=== PATIENT | female | born 1960 | race Caucasian/White ===

== ENCOUNTER → 2016-09-16 | Outpatient (CLI) | payer MEDICARE ==
--- NOTE | 2016-09-17 11:34 | MM ---
Reason for exam: screening (asymptomatic). Last mammogram was performed 1 year and 5 months ago. History: Patient is postmenopausal. Excisional biopsy of the left breast, April 2004. Excisional biopsy of the left breast, 2000. Excisional biopsy of the left breast, June 1999. Took estrogen for 4 years 6 months beginning at age 39. Physical Findings: A clinical breast exam by your physician is recommended on an annual basis and results should be correlated with mammographic findings. MG 3D Screening Mammo W/Cad Bilateral CC and MLO view(s) were taken. Prior study comparison: April 18, 2015, bilateral MG 3d diag mammo w/cad TOBY. June 24, 2006, CAD bilateral diagnostic mammogram. The breast tissue is almost entirely fat. Left benign calcifications. There is no discrete abnormality. No significant changes when compared with prior studies. ASSESSMENT: Benign, BI-RAD 2 RECOMMENDATION: Routine screening mammogram of both breasts in 1 year.
== END | disposition home or self-care (01) ==
LOC: RADMAMWWP 13:05
PROVIDERS: ATTEND Family Medicine
DX: Z12.31 Encounter for screening mammogram for malignant neoplasm of breast (principal)
CPT/HCPCS: 77063; G0202

== ENCOUNTER 2016-09-19 10:21 | Emergency (ER) | payer MEDICARE ==
[2016-09-19 10:29] VITALS: BP 109/63; PULSE 72; RESP 16; TEMP 97.8
--- NOTE | 2016-09-19 11:21 | ED ---
Fall HPI - General Chief Complaint: Fall Stated Complaint: Fall/shoulder/head/knees Time Seen by Provider: 09/19/16 10:33 Source: patient, RN notes reviewed Mode of arrival: wheelchair - History of Present Illness Initial Comments: 55-year-old female presents to the emergency department with a chief complaint of fall. Patient states she tripped over a cord in the bathroom. Patient states that she fell forward onto her left shoulder and her right knee. Patient states she also hit her head and is having some mild neck pain. Patient states that her back is also causing her some discomfort as well. Patient states she was able to ambulate after the incident. Patient states that she has no nausea or vomiting. There is no loss of consciousness. Patient states she was concerned due to the [place] her right knee and just her generally not feeling 100% feeling sore from the fall so she thought that she should be seen. Patient states that her family care doctor is closed today so she could not see him. Patient denies any recent fever, chills, shortness of breath, chest pain, back pain, abdominal pain, nausea vomiting, numbness or tingling, dysuria or hematuria, constipation or diarrhea, headaches or visual changes, or any other current symptoms. - Related Data Home Medications Medication Instructions Recorded Confirmed ALPRAZolam [Xanax] 0.5 mg PO Q6HR PRN 09/05/14 07/15/15 Atenolol [Tenormin] 50 mg PO BID 09/05/14 07/15/15 Doxepin HCl [SINEquan] 150 - 300 mg PO HS 12/11/14 07/15/15 Ibuprofen [Motrin] 800 mg PO Q6HR PRN 12/11/14 07/15/15 PHENobarbital 15 mg PO DAILY 12/11/14 07/15/15 FLUoxetine HCL [FLUoxetine HCL] 80 mg PO DAILY 07/09/15 07/15/15 HYDROcodone/APAP 10-325MG [[place] 1 tab PO Q6H PRN 07/15/15 07/15/15 10-325] Naproxen 500 mg PO BID-W/MEALS 07/15/15 07/15/15 Allergies Allergy/AdvReac Type Severity Reaction Status Date / Time No Known Allergies Allergy Verified 09/19/16 10:29 Review of Systems ROS Statement: Those systems with pertinent positive or pertinent negative responses have been documented in the HPI. ROS Other: All systems not noted in ROS Statement are negative. Past Medical History Past Medical History: Fibromyalgia, Hypertension, Osteoarthritis (OA) Additional Past Medical History / Comment(s): agoraphobia, ocd, , CHRONIC BACK PAIN, DDD,MIGRAINES, UTI, History of Any Multi-Drug Resistant Organisms: None Reported Past Surgical History: Section, Hysterectomy, Joint Replacement Additional Past Surgical History / Comment(s): lumpectomy/cyst (BENIGN) removed lt breast, total hysterectomy, colonoscopy, rt foot sx BENIGN TUMOR REMOVED., luke knee replacements Past Anesthesia/Blood Transfusion Reactions: No Reported Reaction Additional Past Anesthesia/Blood Transfusion Reaction / Comment(s): CLAUSTERPHOBIA Past Psychological History: Anxiety, Depression, Panic Disorder Smoking Status: Never smoker Past Alcohol Use History: None Reported Past Drug Use History: None Reported - Past Family History Father Additional Family Medical History / Comment(s): ALL PT KNOWS ABOUT HER DAD WAS HE WAS AN ALCOHOLIC/SMOKER FROM EMPHYSEMA 6 YEARS AGO. Mother Family Medical History: Cancer Additional Family Medical History / Comment(s): UNK TYPE OF CANCER, MIGRAINES General Exam Limitations: no limitations General appearance: alert, in no apparent distress Head exam: Present: atraumatic, normocephalic, normal inspection Eye exam: Present: normal appearance, PERRL, EOMI. Absent: scleral icterus, conjunctival injection, periorbital swelling ENT exam: Present: normal exam, mucous membranes moist Neck exam: Present: normal inspection. Absent: tenderness, meningismus, lymphadenopathy Respiratory exam: Present: normal lung sounds bilaterally. Absent: respiratory distress, wheezes, rales, rhonchi, stridor Cardiovascular Exam: Present: regular rate, normal rhythm, normal heart sounds. Absent: systolic murmur, diastolic murmur, rubs, gallop, clicks Extremities exam: Present: normal inspection (except to the right knee that does appear to have right knee ecchymosis), full ROM, tenderness (Mild to the right knee as well as to the left shoulder), normal capillary refill. Absent: pedal edema, joint swelling, calf tenderness Back exam: Present: normal inspection, full ROM, tenderness (Some midline tenderness noted in the lower lumbar region), vertebral tenderness (Lower lumbar ). Absent: CVA tenderness (R), CVA tenderness (L), muscle spasm, paraspinal tenderness Neurological exam: Present: alert, oriented X3, CN II-XII intact, reflexes normal. Absent: motor sensory deficit Psychiatric exam: Present: normal affect, normal mood Skin exam: Present: warm, dry, intact, normal color. Absent: rash Course Vital Signs 09/19/16 10:24 Temperature 97.8 F Pulse Rate 72 Respiratory 16 Rate Blood Pressure 109/63 O2 Sat by Pulse 94 L Oximetry Medical Decision Making - Medical Decision Making 55-year-old female presents to the emergency department with the chief complaint of fall. This and patient does appear to have ecchymosis to the right knee. Patient also does have some left shoulder tenderness. This time imaging is reviewed. Everything does appear to be negative for any acute process. This time we did discuss close follow-up with her doctor return parameters all questions. Patient stated that she understood and she is agreeable with plan. At this time we did discuss follow-up. The patient will be discharged home. - Radiology Data Radiology results: report reviewed, image reviewed Disposition Clinical Impression: Fall, Left shoulder strain, Lumbar strain, Cervical strain, Contusion of right knee Disposition: HOME SELF-CARE Condition: Stable Instructions: Muscle Strain (ED), Head Injury (ED), Contusion in Adults (ED) Additional Instructions: Please use medication as discussed. Please follow up with family doctor if symptoms have not improved over the next two days. Please return to the emergency room if your symptoms increase or worsen or for any other concerns. Referrals: Cosme Kaba MD [Primary Care Provider] - 1-2 days Time of Disposition: 11:59
--- NOTE | 2016-09-19 11:32 | CT ---
EXAMINATION TYPE: CT brain cspine wo con DATE OF EXAM: 09/19/2016 COMPARISON: 07/09/2015 HISTORY: Fall x 2 CT DLP: Brain (1116.00) and C-spine (535.40) mGycm, Automated exposure control for dose reduction was used. CONTRAST: Patient injected with 0 mL of Omnipaque 300. CT of the brain is performed utilizing 3 mm thick sections through the posterior fossa and 3 mm thick sections through the remaining calvarium. Study is performed within 24 hours of arrival to the hospital. No abnormal hyperdensity is present to suggest an acute intracranial hemorrhage. No mass lesion is evident. No acute infarcts are evident. Ventricles and sulci are appropriate for the patient age. Paranasal sinuses and mastoid air cells within the [id number] are clear. IMPRESSIONS: 1. No acute intracranial changes. CT cervical spine. COMPARISON: 07/09/2015 CT of the cervical spine is performed in the axial plane at 2 mm thick sections. Reconstructed image s in the coronal, and sagittal plane are reviewed on the computer. No acute fractures are evident. Vertebral body alignment is normal. There is diffuse loss of disc height throughout the cervical spine. Vertebral body heights are preserved. There is some endplate changes present C3-4 to the right at C4-5 bilaterally C5-6 with mild anterior thecal sac compression. No spinal canal stenosis is present. No neural foraminal stenosis is evident. IMPRESSIONS: 1. Degenerative changes within the cervical spine. Exam is stable from 07/09/2015. 2. No acute osseous abnormality.
--- NOTE | 2016-09-19 11:39 | XR ---
EXAMINATION TYPE: XR shoulder complete LT DATE OF EXAM: 09/19/2016 CLINICAL HISTORY: pain COMPARISON: NONE TECHNIQUE: Three views of the left shoulder are obtained. FINDINGS: There is no acute fracture/dislocation evident. The acromioclavicular and glenohumeral talya int spaces appear mildly narrowed. The visualized ribs are intact and unremarkable. IMPRESSION: 1. There is no acute fracture or dislocation. ICD 10 NO FRACTURE, INITIAL EVALUATION
--- NOTE | 2016-09-19 11:40 | XR ---
EXAMINATION TYPE: XR knee complete RT DATE OF EXAM: 09/19/2016 CLINICAL HISTORY: pain TECHNIQUE: Three views of the right knee are obtained. COMPARISON: None. FINDINGS: There is no acute fracture/dislocation. Total knee arthroplasty changes are seen. Small tillman prapatellar joint effusion. The overlying soft tissue appears unremarkable. IMPRESSION: There is no acute fracture or dislocation.ICD 10 NO FRACTURE, INITIAL EVALUATION
--- NOTE | 2016-09-19 11:41 | XR ---
EXAMINATION TYPE: XR lumbar spine 2 or 3V DATE OF EXAM: 09/19/2016 CLINICAL HISTORY: pain TECHNIQUE: Three views of the lumbar spine are submitted. COMPARISON: None. FINDINGS: There are 5 lumbar type vertebral bodies identified. The lumbar spine shows satisfactory alignment w ithout evidence of acute fracture or dislocation. Vertebral body heights are within normal limits. Moderate degenerative narrowing L4-5 and L5-S1. Grade 1 anterolisthesis L5 on S1-S2 regular 7.1 cm. S evere facet joint arthropathy. The overlying soft tissue appears unremarkable. IMPRESSION: No acute fracture is seen in the lumbar spine. Degenerative change and grade 1 anterolisthesis. ICD 10 NO FRACTURE, INITIAL EVALUATION
== END 2016-09-19 12:22 | disposition home or self-care (01) ==
LOC: EC 10:21
DX: S46.912A Strain of unspecified muscle, fascia and tendon at shoulder and upper arm level, left arm, initial encounter (principal); S16.1XXA Strain of muscle, fascia and tendon at neck level, initial encounter; S80.01XA Contusion of right knee, initial encounter; I10 Essential (primary) hypertension; M19.90 Unspecified osteoarthritis, unspecified site; F32.9 Major depressive disorder, single episode, unspecified; Z79.1 Long term (current) use of non-steroidal anti-inflammatories (NSAID); Z79.899 Other long term (current) drug therapy; W01.198A Fall on same level from slipping, tripping and stumbling with subsequent striking against other object, initial encounter; Y92.091 Bathroom in other non-institutional residence as the place of occurrence of the external cause
CPT/HCPCS: 70450; 72100; 72125; 99284

== ENCOUNTER 2017-05-07 16:45 | Emergency (ER) | payer MEDICARE ==
[2017-05-07 16:50] VITALS: RESP 18
[2017-05-07] MEDS ORDERED: SODIUM CHLORIDE 0.9% 500 ML IV ONE (17:18)
[2017-05-07] MEDS ORDERED: RX INFO: IV CONTRAST WAS GIVEN 1 EACH MISC MISCELLANE PRN ×2 (17:18→17:34)
--- NOTE | 2017-05-07 17:20 | ED ---
Fall HPI - General Chief Complaint: Fall Stated Complaint: Back and Abd Pain-fall Source: patient, family Mode of arrival: wheelchair - History of Present Illness Initial Comments: Patient is a 56-year-old female presenting for abdominal pain and flank pain. The patient states that she lives with her and children in that she has fell 22 days ago. She states that she injured her left buttocks as well as her flanks and abdomen. Both falls were mechanical and that she tripped. Additionally, she denies any significant head injury or loss of consciousness. She comes in today for worsening pain as diffuse across her back as well as right flank pain. The pain is crampy estiven not associated with any nausea/ vomiting/diarrhea. She also took some Motrin which did not relieve his symptoms. - Related Data Home Medications Medication Instructions Recorded Confirmed Atenolol [Tenormin] 25 mg PO BID 09/05/14 05/07/17 Ibuprofen [Motrin] 800 mg PO TID PRN 12/11/14 05/07/17 FLUoxetine HCL [FLUoxetine HCL] 40 mg PO DAILY 07/09/15 05/07/17 Naproxen 500 mg PO BID-W/MEALS 07/15/15 05/07/17 ALPRAZolam [Xanax] 1 mg PO TID 05/07/17 05/07/17 Atomoxetine HCl 80 mg PO DAILY 05/07/17 05/07/17 Buprenorphine HCl/Naloxone HCl 1 film SL TID 05/07/17 05/07/17 [Suboxone 8 mg-2 mg Sl Film] Doxepin HCl [SINEquan] 200 mg PO HS 05/07/17 05/07/17 PHENobarbital [Luminal] 16.2 mg PO TID 05/07/17 05/07/17 Phentermine HCl [Adipex-P] 37.5 mg PO QAM 05/07/17 05/07/17 Allergies Allergy/AdvReac Type Severity Reaction Status Date / Time No Known Allergies Allergy Verified 05/07/17 17:12 Review of Systems ROS Statement: Those systems with pertinent positive or pertinent negative responses have been documented in the HPI. Constitutional: Negative for chills, fatigue and fever. HENT: Negative for congestion. Respiratory: Negative for chest tightness, shortness of breath and wheezing. Cardiovascular: Negative for chest pain and palpitations. Gastrointestinal: Positive for abdominal pain and flank pain Negative for abdominal distention, diarrhea, nausea and vomiting. Genitourinary: Negative for dysuria. Musculoskeletal: Negative for back pain, neck pain and neck stiffness. Skin: Negative for color change. Neurological: Negative for dizziness, speech difficulty, weakness and light- headedness. Psychiatric/Behavioral: Negative for agitation and confusion. The patient is not nervous/anxious. ROS Other: All systems not noted in ROS Statement are negative. Past Medical History Past Medical History: Fibromyalgia, Hypertension, Osteoarthritis (OA) Additional Past Medical History / Comment(s): agoraphobia, ocd, , CHRONIC BACK PAIN, DDD,MIGRAINES, UTI, History of Any Multi-Drug Resistant Organisms: None Reported Past Surgical History: Section, Hysterectomy, Joint Replacement Additional Past Surgical History / Comment(s): lumpectomy/cyst (BENIGN) removed lt breast, total hysterectomy, colonoscopy, rt foot sx BENIGN TUMOR REMOVED., luke knee replacements Past Anesthesia/Blood Transfusion Reactions: No Reported Reaction Additional Past Anesthesia/Blood Transfusion Reaction / Comment(s): CLAUSTERPHOBIA Past Psychological History: Anxiety, Depression, Panic Disorder Smoking Status: Never smoker Past Alcohol Use History: None Reported Past Drug Use History: None Reported - Past Family History Father Additional Family Medical History / Comment(s): ALL PT KNOWS ABOUT HER DAD WAS HE WAS AN ALCOHOLIC/SMOKER FROM EMPHYSEMA 6 YEARS AGO. Mother Family Medical History: Cancer Additional Family Medical History / Comment(s): UNK TYPE OF CANCER, MIGRAINES General Exam - General Exam Comments Initial Comments: Physical Exam Constitutional: Pt is oriented to person, place, and time. Pt appears well- developed and well-nourished. No distress. HENT: Head: Normocephalic and atraumatic. Eyes: EOM are normal. Neck: Normal range of motion. Neck supple. Cardiovascular: Normal rate, regular rhythm, S1 normal, S2 normal and normal heart sounds. Exam reveals no gallop and no friction rub. No murmur heard. Pulmonary/Chest: Effort normal and breath sounds normal. No tachypnea and no bradypnea. No respiratory distress. No wheezes or rales noted. Abdominal: Soft. Bowel sounds are normal. Pt exhibits no shifting dullness, no distension, no pulsatile liver, no fluid wave, no abdominal bruit and no ascites. There is no tenderness. There is no rigidity, no rebound, no guarding, no tenderness at McBurney's point and negative Cuevas's sign. Musculoskeletal: Normal range of motion. There is no tenderness to palpation of the C, T or L-spine. There is full range of motion of the C, T and L-spine Neurological: Pt is alert and oriented to person, place, and time. No cranial nerve deficit. Skin: Skin is warm and dry. No rash noted. Pt is not diaphoretic. No erythema. No pallor. Mild ecchymosis on the left buttocks Psychiatric: Pt has a normal mood and affect. Pt behavior is normal. Thought content normal. Limitations: no limitations Course Vital Signs 05/07/17 05/07/17 05/07/17 16:46 17:50 19:35 Temperature 98.3 F 97.6 F Pulse Rate 71 70 Respiratory 18 18 18 Rate Blood Pressure 111/77 121/65 O2 Sat by Pulse 97 98 Oximetry Medical Decision Making - Medical Decision Making Laboratory studies revealed that there is no significant electrolyte derangements and urinalysis was negative for infection. Additionally, CT abdomen showed no evidence of acute pathology but there was a possible contrast load in the ileocecal region. It was advised that this should be clinically correlated but based on repeat physical exams, the patient was not having any significant tenderness. Because the findings of CT and the negative findings on laboratory studies, it was felt that the patient could be safely discharged home and that she should follow-up with her PCP for further evaluation. Prior to discharge, the patient was noticed to be resting comfortably in bed in no acute distress. Patient was agreeable to plan. - Lab Data Result diagrams: 05/07/17 17:45 05/07/17 17:45 Lab Results 05/07/17 05/07/17 05/07/17 Range/Units 17:45 17:45 17:45 WBC 5.8 (3.8-10.6) k/uL RBC 4.76 (3.80-5.40) m/uL Hgb 13.8 (11.4-16.0) gm/dL Hct 43.6 (34.0-46.0) % MCV 91.4 (80.0-100.0) fL MCH 28.9 (25.0-35.0) pg MCHC 31.6 (31.0-37.0) g/dL RDW 13.9 (11.5-15.5) % Plt Count 247 (150-450) k/uL Neutrophils % 75 % Lymphocytes % 16 % Monocytes % 4 % Eosinophils % 3 % Basophils % 1 % Neutrophils # 4.4 (1.3-7.7) k/uL Lymphocytes # 1.0 (1.0-4.8) k/uL Monocytes # 0.2 (0-1.0) k/uL Eosinophils # 0.2 (0-0.7) k/uL Basophils # 0.0 (0-0.2) k/uL PT 10.2 (9.0-12.0) sec INR 1.0 (<1.2) APTT 22.6 (22.0-30.0) sec Sodium 139 (137-145) mmol/L Potassium 4.4 (3.5-5.1) mmol/L Chloride 104 (98-107) mmol/L Carbon Dioxide 26 (22-30) mmol/L Anion Gap 9 mmol/L BUN 16 (7-17) mg/dL Creatinine 0.60 (0.52-1.04) mg/dL Est GFR (MDRD) Af Amer >60 (>60 ml/min/1.73 sqM) Est GFR (MDRD) Non-Af >60 (>60 ml/min/1.73 sqM) Glucose 100 H (74-99) mg/dL Calcium 9.4 (8.4-10.2) mg/dL Magnesium 1.6 (1.6-2.3) mg/dL Total Bilirubin 0.2 (0.2-1.3) mg/dL AST 21 (14-36) U/L ALT 20 (9-52) U/L Alkaline Phosphatase 84 (38-126) U/L Total Protein 6.9 (6.3-8.2) g/dL Albumin 3.9 (3.5-5.0) g/dL Urine Color Urine Appearance (Clear) Urine pH (5.0-8.0) Ur Specific [place] (1.001-1.035) Urine Protein (Negative) Urine Glucose (UA) (Negative) Urine Ketones (Negative) Urine Blood (Negative) Urine Nitrite (Negative) Urine Bilirubin (Negative) Urine Urobilinogen (<2.0) mg/dL Ur Leukocyte Esterase (Negative) 05/07/17 Range/Units 17:55 WBC (3.8-10.6) k/uL RBC (3.80-5.40) m/uL Hgb (11.4-16.0) gm/dL Hct (34.0-46.0) % MCV (80.0-100.0) fL MCH (25.0-35.0) pg MCHC (31.0-37.0) g/dL RDW (11.5-15.5) % Plt Count (150-450) k/uL Neutrophils % % Lymphocytes % % Monocytes % % Eosinophils % % Basophils % % Neutrophils # (1.3-7.7) k/uL Lymphocytes # (1.0-4.8) k/uL Monocytes # (0-1.0) k/uL Eosinophils # (0-0.7) k/uL Basophils # (0-0.2) k/uL PT (9.0-12.0) sec INR (<1.2) APTT (22.0-30.0) sec Sodium (137-145) mmol/L Potassium (3.5-5.1) mmol/L Chloride (98-107) mmol/L Carbon Dioxide (22-30) mmol/L Anion Gap mmol/L BUN (7-17) mg/dL Creatinine (0.52-1.04) mg/dL Est GFR (MDRD) Af Amer (>60 ml/min/1.73 sqM) Est GFR (MDRD) Non-Af (>60 ml/min/1.73 sqM) Glucose (74-99) mg/dL Calcium (8.4-10.2) mg/dL Magnesium (1.6-2.3) mg/dL Total Bilirubin (0.2-1.3) mg/dL AST (14-36) U/L ALT (9-52) U/L Alkaline Phosphatase (38-126) U/L Total Protein (6.3-8.2) g/dL Albumin (3.5-5.0) g/dL Urine Color Yellow Urine Appearance Clear (Clear) Urine pH 6.5 (5.0-8.0) Ur Specific [place] 1.020 (1.001-1.035) Urine Protein Negative (Negative) Urine Glucose (UA) Negative (Negative) Urine Ketones Negative (Negative) Urine Blood Negative (Negative) Urine Nitrite Negative (Negative) Urine Bilirubin Negative (Negative) Urine Urobilinogen <2.0 (<2.0) mg/dL Ur Leukocyte Esterase Negative (Negative) Disposition Clinical Impression: Abdominal pain, Fall at home Disposition: HOME SELF-CARE Condition: Good Instructions: Fall Prevention for Older Adults (ED), Abdominal Pain (ED) Referrals: Cosme Kaba MD [Primary Care Provider] - 1-2 days Time of Disposition: 19:31
[2017-05-07 18:06] LABS: Basophils % (A) 1 %; Eosinophils # (A) 0.2 k/uL (0-0.7); Eosinophils % (A) 3 %; HCT 43.6 % (34.0-46.0); HGB 13.8 gm/dL (11.4-16.0); Lymphocytes % (A) 16 %; MCH 28.9 pg (25.0-35.0); MCHC 31.6 g/dL (31.0-37.0); MCV 91.4 fL (80.0-100.0); Mean Platelet Volume 7.2; Monocytes # (A) 0.2 k/uL (0-1.0); Monocytes % (A) 4 %; Neutrophils # (A) 4.4 k/uL (1.3-7.7); Neutrophils % (A) 75 %; Platelet Count 247 k/uL (150-450); RBC 4.76 m/uL (3.80-5.40); RDW 13.9 % (11.5-15.5); WBC 5.8 k/uL (3.8-10.6)
[2017-05-07 18:09] LABS: Appearance,Urine Clear (Clear); Bilirubin,Urine Negative (Negative); Blood,Urine Negative (Negative); Color,Urine Yellow; Glucose,Urine (UA) Negative (Negative); Ketones,Urine Negative (Negative); Leukocyte Esterase,Urine Negative (Negative); Nitrite,Urine Negative (Negative); PH, Urine 6.5 (5.0-8.0); Protein,Urine Negative (Negative); Urobilinogen,Urine <2.0 mg/dL (<2.0)
[2017-05-07 18:13] LABS: ALT 20 U/L (9-52); AST 21 U/L (14-36); Albumin 3.9 g/dL (3.5-5.0); Alkaline Phosphatase 84 U/L (38-126); Anion Gap 9 mmol/L; Blood Urea Nitrogen 16 mg/dL (7-17); Calcium 9.4 mg/dL (8.4-10.2); Carbon Dioxide 26 mmol/L (22-30); Chloride 104 mmol/L (98-107); Glucose 100 mg/dL (74-99); Magnesium 1.6 mg/dL (1.6-2.3); Potassium 4.4 mmol/L (3.5-5.1); Sodium 139 mmol/L (137-145); Total Bilirubin 0.2 mg/dL (0.2-1.3); Total Protein 6.9 g/dL (6.3-8.2)
[2017-05-07 18:15] LABS: Partial Thromboplastin Time 22.6 sec (22.0-30.0); Prothrombin Time 10.2 sec (9.0-12.0)
[2017-05-07] MEDS ORDERED: Acetaminophen-Codeine 300-30mg TAB PO STA (18:28)
--- NOTE | 2017-05-07 18:54 | CT ---
EXAMINATION TYPE: CT abdomen pelvis w con DATE OF EXAM: 05/07/2017 COMPARISON: NONE HISTORY: 56-year-old female Bilateral flank pain post multiple falls TECHNIQUE: Contiguous axial scanning of the abdomen and pelvis following administration of 100 ml Omn ipaque 300 IV contrast. Delayed images through the kidneys and coronal/sagittal reconstructions perf ormed. CT DLP: 1673.4 mGycm Automated exposure control for dose reduction was used. FINDINGS: Heart normal size without pericardial effusion. Strandy areas of atelectasis or scarring are present at the lung bases. No pleural effusion. Subcentimeter hypodensity mid liver to small for accurate CT characterization, probable cyst. Liver m ildly enlarged at 18.1 cm craniocaudal. Portal venous system is patent. No biliary ductal dilatation. Gallbladder, adrenal glands, kidneys, spleen, and partially fatty replaced pancreas are otherwise deysi ssly unremarkable. No dilated small bowel, free fluid, or free air. No mesenteric or retroperitoneal lymphadenopathy. There is dense inspissated material at the ileocecal region and cecum suggesting previous oral contra st administration. A couple sigmoid diverticula. No pericolonic inflammatory changes. Bladder nondistended. Uterus surgically absent. Neither ovary clearly seen. No abnormal fluid collect ion in the pelvis or pelvic lymphadenopathy seen. Bones: Degenerative changes of the pubic symphysis. Moderate to advanced disc/endplate degenerative c hange L4-L5 and L5-S1. Hypertrophic facet arthropathy mid to lower lumbar spine. There is a pars inte rarticularis defect on the right L5 and grade 1 anterolisthesis at L5-S1. No osseous destructive proc ess. IMPRESSION: 1. DENSE INSPISSATED MATERIAL AT THE ILEOCECAL REGION SUGGESTS PRIOR ORAL CONTRAST ADMINISTRATION. PO SSIBLE DESICCATED AND RETAINED BARIUM. CLINICALLY CORRELATE. NO OBSTRUCTIVE CHANGES. 2. MODERATE TO ADVANCED DEGENERATIVE CHANGES L4-L5 AND L5-S1. THERE IS A GRADE 1 ANTEROLISTHESIS OF L 5-S1 AND A RIGHT L5 PARS DEFECT. 3. A COUPLE SIGMOID DIVERTICULA.
[2017-05-07 19:43] VITALS: BP 121/65; PULSE 70; TEMP 97.6
== END 2017-05-07 19:35 | disposition home or self-care (01) ==
LOC: EC 16:45
DX: R10.84 Generalized abdominal pain (principal); S30.0XXA Contusion of lower back and pelvis, initial encounter; I10 Essential (primary) hypertension; M19.90 Unspecified osteoarthritis, unspecified site; F32.9 Major depressive disorder, single episode, unspecified; F41.0 Panic disorder [episodic paroxysmal anxiety]; F42.9 Obsessive-compulsive disorder, unspecified; Z79.1 Long term (current) use of non-steroidal anti-inflammatories (NSAID); Z79.899 Other long term (current) drug therapy; W18.09XA Striking against other object with subsequent fall, initial encounter; Y92.009 Unspecified place in unspecified non-institutional (private) residence as the place of occurrence of the external cause
CPT/HCPCS: 36415; 80053; 83735; 85025; 85610; 85730; 81003; 74177; 99284; 96360; Q9967

== ENCOUNTER 2017-06-12 10:29 | Inpatient (IN) | payer MEDICARE ==
[2017-06-12] MEDS ORDERED: SODIUM CHLORIDE 0.9% 1,000 ML IV STA ×2 (10:40)
--- NOTE | 2017-06-12 10:46 | ED ---
Syncope HPI - General Stated Complaint: Seizure Time Seen by Provider: 06/12/17 10:29 Source: patient, EMS, RN notes reviewed, old records reviewed Mode of arrival: EMS - History of Present Illness Initial Comments: Female with a history of anxiety a history of apparently frequent falls who was brought in by EMS after falling twice this morning. She does not recall the falls EMS was called by the patient's daughter. She apparently fell once got up and then fell again demonstrate some brief extension/posturing of her extremities. Per reports from paramedics. No overt tonic-clonic activity was noted. Initially the patient was a and O 2 per and F are as it responded first by the time paramedics responded she was a and O 3 she did seem to have a little bit of difficulty with speech initially this did apparently clear up. She complains of a 10/10 global headache some neck pain no palpitations cough fevers chills sweats or other symptoms the cessation stroke scale was apparently negative with family possible deficit was the speech is noted. Patient states she has a history of anxiety and ran out of her medications well over a week ago MD Complaint: loss of consciousness - Related Data Home Medications Medication Instructions Recorded Confirmed Atenolol [Tenormin] 50 mg PO BID 09/05/14 06/12/17 Ibuprofen [Motrin] 800 mg PO TID PRN 12/11/14 06/12/17 Naproxen 500 mg PO BID-W/MEALS 07/15/15 06/12/17 ALPRAZolam [Xanax] 1 mg PO TID 05/07/17 06/12/17 Atomoxetine HCl 80 mg PO DAILY 05/07/17 06/12/17 Buprenorphine HCl/Naloxone HCl 1 film SL TID 05/07/17 06/12/17 [Suboxone 8 mg-2 mg Sl Film] Doxepin HCl [SINEquan] 200 mg PO HS 05/07/17 06/12/17 Phentermine HCl [Adipex-P] 37.5 mg PO QAM 05/07/17 06/12/17 Promethazine 6.25MG/5Ml [Phenergan 5 mg PO TID PRN 06/12/17 06/12/17 Syrup] Allergies Allergy/AdvReac Type Severity Reaction Status Date / Time No Known Allergies Allergy Verified 06/12/17 10:48 Review of Systems ROS Statement: Those systems with pertinent positive or pertinent negative responses have been documented in the HPI. ROS Other: All systems not noted in ROS Statement are negative. Past Medical History Past Medical History: Fibromyalgia, Hypertension, Osteoarthritis (OA) Additional Past Medical History / Comment(s): agoraphobia, ocd, , CHRONIC BACK PAIN, DDD,MIGRAINES, UTI, History of Any Multi-Drug Resistant Organisms: None Reported Past Surgical History: Section, Hysterectomy, Joint Replacement Additional Past Surgical History / Comment(s): lumpectomy/cyst (BENIGN) removed lt breast, total hysterectomy, colonoscopy, rt foot sx BENIGN TUMOR REMOVED., luke knee replacements Past Anesthesia/Blood Transfusion Reactions: No Reported Reaction Additional Past Anesthesia/Blood Transfusion Reaction / Comment(s): CLAUSTERPHOBIA Past Psychological History: Anxiety, Depression, Panic Disorder Smoking Status: Never smoker Past Alcohol Use History: None Reported Past Drug Use History: None Reported - Past Family History Father Additional Family Medical History / Comment(s): ALL PT KNOWS ABOUT HER DAD WAS HE WAS AN ALCOHOLIC/SMOKER FROM EMPHYSEMA 6 YEARS AGO. Mother Family Medical History: Cancer Additional Family Medical History / Comment(s): UNK TYPE OF CANCER, MIGRAINES General Exam - General Exam Comments Initial Comments: This a well-developed well-nourished awake alert somewhat lethargic female Liliam Coma Scale currently of 15 General appearance: alert, in no apparent distress Head exam: Present: atraumatic, normocephalic, normal inspection Eye exam: Present: normal appearance, PERRL, EOMI. Absent: scleral icterus, conjunctival injection, periorbital swelling ENT exam: Present: mucous membranes dry, mucous membranes moist Neck exam: Present: normal inspection. Absent: tenderness, meningismus, lymphadenopathy Respiratory exam: Present: normal lung sounds bilaterally. Absent: respiratory distress, wheezes, rales, rhonchi, stridor Cardiovascular Exam: Present: regular rate, normal rhythm, normal heart sounds. Absent: systolic murmur, diastolic murmur, rubs, gallop, clicks GI/Abdominal exam: Present: soft, normal bowel sounds. Absent: distended, tenderness, guarding, rebound, rigid Extremities exam: Present: normal inspection, full ROM, normal capillary refill. Absent: tenderness, pedal edema, joint swelling, calf tenderness Back exam: Present: normal inspection Neurological exam: Present: alert, oriented X3, CN II-XII intact Psychiatric exam: Present: normal affect, normal mood Skin exam: Present: warm, dry, intact, normal color. Absent: rash Course Vital Signs 06/12/17 06/12/17 06/12/17 10:42 11:28 12:12 Temperature 98.2 F 98.5 F Pulse Rate 58 L 56 L 77 Respiratory 18 18 16 Rate Blood Pressure 114/73 103/59 113/67 O2 Sat by Pulse 98 100 96 Oximetry - Reevaluation(s) Reevaluation #1: 06/12/17 12:59 Reevaluation patient reveals no change she has no complaints at this time other than her headache and she wants Xanax. Medical Decision Making - Medical Decision Making I did a long discussion with the patient and her family member who was present. Patient will be admitted he is concerned that she is occasionally twitches he does have hypomagnesemia this may be part of the issue at this time is unclear what caused the syncope. The patient is noted to have frequent falls at home. She states she was cleaning the house for 2 days and did not eat or drink very much. She denies any prior history of kidney disease. - Lab Data Result diagrams: 06/12/17 10:40 06/12/17 10:40 Lab Results 06/12/17 06/12/17 06/12/17 Range/Units 10:40 10:40 10:40 WBC 5.8 (3.8-10.6) k/uL RBC 4.70 (3.80-5.40) m/uL Hgb 13.1 (11.4-16.0) gm/dL Hct 40.5 (34.0-46.0) % MCV 86.3 D (80.0-100.0) fL MCH 27.9 (25.0-35.0) pg MCHC 32.4 (31.0-37.0) g/dL RDW 13.6 (11.5-15.5) % Plt Count 295 (150-450) k/uL Neutrophils % 71 % Lymphocytes % 18 % Monocytes % 5 % Eosinophils % 3 % Basophils % 1 % Neutrophils # 4.1 (1.3-7.7) k/uL Lymphocytes # 1.0 (1.0-4.8) k/uL Monocytes # 0.3 (0-1.0) k/uL Eosinophils # 0.2 (0-0.7) k/uL Basophils # 0.0 (0-0.2) k/uL PT (9.0-12.0) sec INR (<1.2) APTT (22.0-30.0) sec D-Dimer (<0.60) mg/L FEU Sodium (137-145) mmol/L Potassium (3.5-5.1) mmol/L Chloride (98-107) mmol/L Carbon Dioxide (22-30) mmol/L Anion Gap mmol/L BUN (7-17) mg/dL Creatinine (0.52-1.04) mg/dL Est GFR (CKD-EPI)AfAm (>60 ml/min/1.73 sqM) Est GFR (CKD-EPI)NonAf (>60 ml/min/1.73 sqM) Glucose (74-99) mg/dL Calcium (8.4-10.2) mg/dL Magnesium (1.6-2.3) mg/dL Total Bilirubin (0.2-1.3) mg/dL AST (14-36) U/L ALT (9-52) U/L Alkaline Phosphatase (38-126) U/L Ammonia 10 (<30) umol/L Total Creatine Kinase 342 H (30-135) U/L CK-MB (CK-2) 8.3 H* (0.0-2.4) ng/mL CK-MB (CK-2) Rel Index 2.4 Troponin I <0.012 (0.000-0.034) ng/mL Total Protein (6.3-8.2) g/dL Albumin (3.5-5.0) g/dL Serum Alcohol mg/dL 06/12/17 06/12/17 Range/Units 10:40 10:40 WBC (3.8-10.6) k/uL RBC (3.80-5.40) m/uL Hgb (11.4-16.0) gm/dL Hct (34.0-46.0) % MCV (80.0-100.0) fL MCH (25.0-35.0) pg MCHC (31.0-37.0) g/dL RDW (11.5-15.5) % Plt Count (150-450) k/uL Neutrophils % % Lymphocytes % % Monocytes % % Eosinophils % % Basophils % % Neutrophils # (1.3-7.7) k/uL Lymphocytes # (1.0-4.8) k/uL Monocytes # (0-1.0) k/uL Eosinophils # (0-0.7) k/uL Basophils # (0-0.2) k/uL PT 10.2 (9.0-12.0) sec INR 1.0 (<1.2) APTT 21.0 L (22.0-30.0) sec D-Dimer 0.70 H (<0.60) mg/L FEU Sodium 142 (137-145) mmol/L Potassium 4.3 (3.5-5.1) mmol/L Chloride 103 (98-107) mmol/L Carbon Dioxide 24 (22-30) mmol/L Anion Gap 15 mmol/L BUN 35 H (7-17) mg/dL Creatinine 1.99 H (0.52-1.04) mg/dL Est GFR (CKD-EPI)AfAm 31 (>60 ml/min/1.73 sqM) Est GFR (CKD-EPI)NonAf 27 (>60 ml/min/1.73 sqM) Glucose 80 (74-99) mg/dL Calcium 9.7 (8.4-10.2) mg/dL Magnesium 1.5 L (1.6-2.3) mg/dL Total Bilirubin 0.2 (0.2-1.3) mg/dL AST 32 (14-36) U/L ALT 26 (9-52) U/L Alkaline Phosphatase 80 (38-126) U/L Ammonia (<30) umol/L Total Creatine Kinase (30-135) U/L CK-MB (CK-2) (0.0-2.4) ng/mL CK-MB (CK-2) Rel Index Troponin I (0.000-0.034) ng/mL Total Protein 7.3 (6.3-8.2) g/dL Albumin 4.2 (3.5-5.0) g/dL Serum Alcohol <10 mg/dL - Radiology Data Radiology results: report reviewed (I did review the imaging and reports no acute findings.), image reviewed Critical Care Time Critical Care Time: Yes Critical Care Time: 39 minutes of critical care time which includes initial presentation with monitoring of the EMS run and discussed with paramedics history physical labs x- rays multiple reevaluation of the patient. Discussed with patient family regarding findings discussion with the admitting physician admission orders and documentation of the above. Disposition Clinical Impression: Syncope and collapse, Acute renal failure, Dehydration Disposition: ADMITTED IP TO THIS [facility] Condition: Stable Referrals: Cosme Kaba MD [Primary Care Provider] - 1-2 days
[2017-06-12 10:57] LABS: Basophils % (A) 1 %; Eosinophils # (A) 0.2 k/uL (0-0.7); Eosinophils % (A) 3 %; HCT 40.5 % (34.0-46.0); HGB 13.1 gm/dL (11.4-16.0); Lymphocytes % (A) 18 %; MCH 27.9 pg (25.0-35.0); MCHC 32.4 g/dL (31.0-37.0); Mean Platelet Volume 7.7; Monocytes # (A) 0.3 k/uL (0-1.0); Monocytes % (A) 5 %; Neutrophils # (A) 4.1 k/uL (1.3-7.7); Neutrophils % (A) 71 %; Platelet Count 295 k/uL (150-450); RDW 13.6 % (11.5-15.5); WBC 5.8 k/uL (3.8-10.6)
[2017-06-12 11:04] LABS: MCV 86.3 fL (80.0-100.0)
[2017-06-12 11:06] LABS: ALT 26 U/L (9-52); AST 32 U/L (14-36); Albumin 4.2 g/dL (3.5-5.0); Alcohol <10 mg/dL; Alkaline Phosphatase 80 U/L (38-126); Anion Gap 15 mmol/L; Blood Urea Nitrogen 35 mg/dL (7-17); Calcium 9.7 mg/dL (8.4-10.2); Carbon Dioxide 24 mmol/L (22-30); Chloride 103 mmol/L (98-107); Glucose 80 mg/dL (74-99); Magnesium 1.5 mg/dL (1.6-2.3); Potassium 4.3 mmol/L (3.5-5.1); Sodium 142 mmol/L (137-145); Total Bilirubin 0.2 mg/dL (0.2-1.3); Total Protein 7.3 g/dL (6.3-8.2)
[2017-06-12 11:11] LABS: Creatine Kinase 342 U/L (30-135)
[2017-06-12 11:21] LABS: D-Dimer 0.7 mg/L FEU (<0.60)
[2017-06-12 11:24] LABS: Troponin I <0.012 ng/mL (0.000-0.034)
[2017-06-12 11:25] LABS: Prothrombin Time 10.2 sec (9.0-12.0)
[2017-06-12 11:26] LABS: Creatine Kinase MB 8.3 ng/mL (0.0-2.4)
--- NOTE | 2017-06-12 11:36 | CT ---
EXAMINATION TYPE: CT brain gian larson con DATE OF EXAM: 06/12/2017 COMPARISON: Previous study dated 09/19/2016. HISTORY: seizure, syncope CT DLP: 1959 mGycm Automated exposure control for dose reduction was used. TECHNIQUE: CT scan of the head and cervical spine are performed without contrast. FINDINGS: BRAIN: There are mild, generalized changes of sulcal prominence and ventriculomegaly, compatible with mild atrophy. Central structures are midline. There is no evidence of hydrocephalus. There is some periventricular white matter lucency likely reflecting chronic white matter ischemic change. There is no mass effect, midline shift or intracranial blood. Visualized portions of the paranasal sinuses and mastoids are clear. The bony calvarium is intact. IMPRESSION: 1. NO ACUTE INTRACRANIAL ABNORMALITY. 2. MILD DEGENERATIVE CHANGE. SEE CERVICAL SPINE: There are mild emphysematous changes within the visualized portions of the lungs. Prevertebral soft tissues are normal. There is a mild reversal of the normal cervical lordosis. There is diffuse disc space loss with relat tsering sparing of C2-3. This hypertrophic spondylosis extending from C3-4 through to C6-7. Alignment rem ains normal. Atlantoaxial relationships are normal. There is uncovertebral joint disease present at a ll levels with relative sparing of the C2-3 articulation. No definite protrusion is seen. No fracture s identified. IMPRESSION: 1. NO ACUTE OSSEOUS LESION. 2. DEGENERATIVE CHANGE.
[2017-06-12] MEDS ORDERED: MAGNESIUM SULFATE-D5W PMX 1 GM in DEXTROSE/WATER 1 100ML.BAG IVPB ONE (11:45)
[2017-06-12] MEDS ORDERED: ONDANSETRON 4 MG/2 ML VIAL IVP PRN (13:04)
[2017-06-12] MEDS ORDERED: NALOXONE 0.4 MG/ML 1 ML VIAL IV PRN ×2 (13:04→20:48)
[2017-06-12] MEDS ORDERED: SODIUM CHLORIDE 0.9% 1,000 ML IV SCH (13:15)
[2017-06-12 18:28] VITALS: BMI 39.3
[2017-06-12] MEDS ORDERED: LACTULOSE 20 GM/30 ML CUP PO PRN (20:48)
[2017-06-12] MEDS ORDERED: CALCIUM CARBONATE 500 MG CHEWABLE PO PRN (20:48)
[2017-06-12] MEDS ORDERED: MAGNESIUM HYDROXIDE 2,400 MG/10 ML CUP PO PRN (20:48)
[2017-06-12] MEDS ORDERED: DOXEPIN 25 MG CAP PO SCH (21:00)
[2017-06-12] MEDS: LACTATED RINGERS 1,000 ML IV SCH (21:13)
[2017-06-12] MEDS: ALPRAZolam 1 MG TAB PO SCH (21:25)
[2017-06-12] MEDS: ENOXAPARIN 40 MG/0.4 ML SYRINGE SQ SCH (21:25)
[2017-06-12] MEDS: ATENOLOL 50 MG TAB PO SCH (21:29)
[2017-06-12] MEDS: ACETAMINOPHEN TAB 325 MG TAB PO PRN (22:41)
[2017-06-12] MEDS: Buprenorphine Hcl/Naloxone Hcl [Suboxone 8 Mg-2 Mg Sl Film] 1 FILM SL SCH (22:42)
--- NOTE | 2017-06-12 23:25 | HP ---
HISTORY AND PHYSICAL PRESENTING COMPLAINT: Seizure, fall. HISTORY OF PRESENTING COMPLAINT: This is a 56-year-old patient of Dr. Kaba. Chronic stable medical conditions include fibromyalgia, hypertension, osteoarthritis, OCD, chronic back pain, anxiety, depression. The patient was hooked on Vicodin for about 5 years and that has been on Suboxone for now for 5 years. The patient had 2 seizure episodes at home today and then patient passed out hitting head on the floor. The patient does not remember the events. The patient is having some headache. Denies any chest pain, palpitation. REVIEW OF SYSTEMS: CONSTITUTIONAL: Tired. HEENT: Some headache where she bumped her head. External appearance of nose and ears normal. Oral cavity normal. NECK: JVD not raised. Mass not palpable. RESPIRATORY: Effort normal. LUNGS: Fair entry. CARDIOVASCULAR: First and second sounds, no edema. ABDOMEN: Soft, nontender. Liver and spleen not palpable. LYMPHATIC: No lymph node of palpable in the neck or axillae. PSYCHIATRY: Alert and oriented x3. Anxiety followed by Dr. Rico. MUSCULOSKELETAL: Chronic low back pain. PAST MEDICAL HISTORY: Fibromyalgia, hypertension, osteoarthritis, agoraphobia, OCD, chronic back pain, migraines, anxiety, depression. PAST SURGICAL HISTORY: , hysterectomy, lumpectomy, total hysterectomy, right foot surgery, bilateral knee replacement, psych history of depression, anxiety, OCD, agoraphobia. SOCIAL HISTORY: , lives with daughter. FAMILY HISTORY: Cancer type unknown, alcoholism, emphysema. HOME MEDICATIONS: 1. Phenergan 5 mg p.o. t.i.d. p.r.n. 2. Adipex 37.5 p.o. daily. 3. Naproxen 5 mg p.o. b.i.d. 4. Motrin 800 mg p.o. t.i.d. p.r.n. 5. 200 mg q.h.s. 6. Suboxone 8/2 one subcu t.i.d. 7. Atomoxetine 80 mg p.o. daily. 8. Tenormin 50 mg b.i.d. 9. Xanax 1 mg p.o. t.i.d. ALLERGIES: None. PHYSICAL EXAMINATION: Temperature 98.3, pulse 63, respirations 16, blood pressure 106/51, pulse ox 100% on room. GENERAL APPEARANCE: Well built, BMI 39.3. Lying in bed awake. EYES: Pupils equal. Conjunctivae normal. HEENT: External appearance of nose and ears normal. Oral cavity normal. NECK: JVD not raised. Mass not palpable. Respiratory effort normal. Lungs are clear. CARDIOVASCULAR: First and seconds sounds normal. No edema. ABDOMEN: Soft, nontender. Liver and spleen not palpable. LYMPHATIC: No lymph node palpable in neck or axillae. PSYCHIATRY: Alert and oriented x3. Mood and affect slightly anxious-appearing. Neurological: Pupils equal. Cranial nerves grossly intact. Power and sensation grossly intact. INVESTIGATIONS: White count 5.8, hemoglobin 13.1, potassium 4.3 BUN 35, creatinine 1.99. Troponin less than 0.012. Serum alcohol less than 10. The patient's creatinine was 0.60 about a month ago. ASSESSMENT: 1. Two episodes of seizures, witnessed, appeared to be tonic-clonic resulting in fall. 2. Blunt head injury secondary to fall with no residue. 3. Acute renal failure, probably acute interstitial nephritis, nonoliguric secondary to use of NSAIDs. 4. Chronic fibromyalgia. 5. Essential hypertension. 6. Obesity, BMI 39.3. 7. Essential hypertension. 8. Obsessive compulsive disorder. 9. Agoraphobia. 10.Anxiety, not otherwise specified. 11.Chronic low back pain. PLAN: EEG has been ordered. Neurology was consulted. Will also consult Psychiatry for the patient's anxiety. Of course the patient's NSAIDs will be discontinued. We will give IV fluids. Check labs in the morning. The patient's UA is otherwise rather benign appearing. Check renal ultrasound. Keep the patient on telemetry. Care was discussed with the patient. Questions were answered. MMODL / IJN: [id number] /
[2017-06-13 02:14] LABS: Glucose,Whole Blood 96 mg/dL (75-99)
[2017-06-13 06:15] LABS: Glucose,Whole Blood 88 mg/dL (75-99)
[2017-06-13 06:42] LABS: Calcium 8.9 mg/dL (8.4-10.2); Potassium 4.2 mmol/L (3.5-5.1)
--- NOTE | 2017-06-13 08:38 | US ---
EXAMINATION TYPE: US renals and bladder DATE OF EXAM: 06/13/2017 COMPARISON: CT scan 05/07/2017 no definite acute process. CLINICAL HISTORY: renal failure. Renal failure EXAM MEASUREMENTS: Right Kidney: 10.6 x 5.9 x 5.4 cm Left Kidney: 9.4 x 5.7 x 4.8 cm Difficult and limited study due to patient body habitus Right Kidney: no hydro or masses seen Left Kidney: no hydro or masses seen Bladder: wnl Bilateral Jets seen: no There is no evidence for hydronephrosis at this point in time. No nephrolithiasis is seen. No aide s are identified. The urinary bladder is anechoic. Bilateral ureteral jets are seen. IMPRESSION: Exam is limited by body habitus.
[2017-06-13] MEDS ORDERED: STRATTERA PO SCH (09:00)
[2017-06-13] MEDS ORDERED: ADIPEX P PO SCH (09:00)
[2017-06-13] MEDS: ALPRAZolam 1 MG TAB PO SCH ×3 (09:23→20:53)
[2017-06-13] MEDS: ATENOLOL 50 MG TAB PO SCH ×2 (09:25→19:44)
[2017-06-13] MEDS: ENOXAPARIN 40 MG/0.4 ML SYRINGE SQ SCH (09:29)
[2017-06-13 09:38] LABS: Cocaine Screen,Urine Not Detected (NotDetected); Phencyclidine Screen,Urine Not Detected (NotDetected); Urn Cannabinoid Scrn Not Detected (NotDetected)
[2017-06-13 09:39] LABS: Amphetamine Screen,Urine Detected (NotDetected); Barbiturate Screen,Urine Detected (NotDetected); Benzodiazepines Screen,Urine Detected (NotDetected); Methadone Screen, Urine Not Detected (NotDetected); Opiate Screen,Urine Not Detected (NotDetected); Oxycodone Screen, Urine Not Detected (NotDetected); Tricyclic Antidepressant,Urine Detected (NotDetected)
[2017-06-13 09:41] LABS: Appearance,Urine Clear (Clear); Bilirubin,Urine Negative (Negative); Blood,Urine Negative (Negative); Color,Urine Yellow; Glucose,Urine (UA) Negative (Negative); Hyaline Casts,Urine 3 /lpf (0-2); Ketones,Urine Negative (Negative); Leukocyte Esterase,Urine Moderate (Negative); Nitrite,Urine Negative (Negative); Protein,Urine Trace (Negative); Specific Gravity,Urine 1.018 (1.001-1.035); Urobilinogen,Urine <2.0 mg/dL (<2.0); WBC,Urine 9 /hpf (0-5)
[2017-06-13] MEDS: LACTATED RINGERS 1,000 ML IV SCH ×7 (10:30→19:47)
--- NOTE | 2017-06-13 10:55 | CT ---
EXAMINATION TYPE: CT brain wo con DATE OF EXAM: 06/13/2017 COMPARISON: 06/12/2017 HISTORY: Syncopal episodes with Left sided injury. Headaches CT DLP: 1108.4 mGycm Automated exposure control for dose reduction was used. FINDINGS: There is mild generalized degenerative change. Periventricular low attenuation is nonspecific but bruce ears stable. Calvarium intact. No acute hemorrhage or mass effect. IMPRESSION: NO ACUTE HEMORRHAGE OR MASS EFFECT. DEGENERATIVE CHANGE WITH A GREATER FRONTAL LOBE COMPONENT IS STAB LE. PREVIOUS SEEN NOTED HYPODENSITIES WITHIN THE WHITE MATTER ARE UNCHANGED AND NONSPECIFIC. CONSIDER MRI FOLLOW-UP
[2017-06-13] MEDS: ACETAMINOPHEN TAB 325 MG TAB PO PRN (12:32)
[2017-06-13] MEDS: Buprenorphine Hcl/Naloxone Hcl [Suboxone 8 Mg-2 Mg Sl Film] 1 FILM SL SCH ×3 (12:33→19:39)
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
[2017-06-13 16:51] LABS: Glucose,Whole Blood 110 mg/dL (75-99)
--- NOTE | 2017-06-13 20:08 | P.CNNES ---
History of Present Illness Consult date: 06/13/17 History of Present Illness: The patient is a 56-year-old right-handed white female who states she was in the kitchen yesterday afternoon and suddenly passed out. She does not recall what happened. He does recall waking up on the floor and her daughter beside her. Her daughter apparently was telling her mother that she had had a seizure. Her daughter called 911 and the patient was brought by EMS to the emergency room. Apparently there was some slight confusion soon after waking up. Also in the ER there was some twitching noted of the muscles. There is no past history of seizures or fainting. There was no loss of bladder control and there was no oral trauma. The patient reports she was under a lot of stress and wasn't eating for the last few days because her dog 3 days ago. The patient fell hitting the corner of her eye on the kitchen island. She complains of headache along the frontal head region. She did have a CT of the brain in the emergency room this CT showed no acute hemorrhage. There was degenerative changes which appeared stable Review of Systems Constitutional: Denies chills, Denies fever Eyes: denies blurred vision, denies pain Ears, nose, mouth and throat: Denies headache, Denies sore throat Cardiovascular: Denies chest pain, Denies shortness of breath Respiratory: Denies cough Gastrointestinal: Denies abdominal pain, Denies diarrhea, Denies nausea, Denies vomiting Genitourinary: Denies dysuria, Denies hematuria Musculoskeletal: Denies myalgias Neurological: Denies numbness, Denies weakness Past Medical History Past Medical History: Fibromyalgia, Hypertension, Osteoarthritis (OA) Additional Past Medical History / Comment(s): agoraphobia, ocd, , CHRONIC BACK PAIN, DDD,MIGRAINES, UTI, anxiety and depression History of Any Multi-Drug Resistant Organisms: None Reported Past Surgical History: Section, Hysterectomy, Joint Replacement Additional Past Surgical History / Comment(s): lumpectomy/cyst (BENIGN) removed lt breast, total hysterectomy, colonoscopy, rt foot sx BENIGN TUMOR REMOVED., luke knee replacements Past Anesthesia/Blood Transfusion Reactions: No Reported Reaction Additional Past Anesthesia/Blood Transfusion Reaction / Comment(s): CLAUSTERPHOBIA Past Psychological History: Anxiety, Depression, Panic Disorder Additional Psychological History / Comment(s): panic attackes, ocd, agoraphobia Smoking Status: Never smoker Past Alcohol Use History: None Reported Past Drug Use History: None Reported - Past Family History Father Additional Family Medical History / Comment(s): ALL PT KNOWS ABOUT HER DAD WAS HE WAS AN ALCOHOLIC/SMOKER FROM EMPHYSEMA 6 YEARS AGO. Mother Family Medical History: Cancer Additional Family Medical History / Comment(s): UNK TYPE OF CANCER, MIGRAINES Medications and Allergies Home Medications Medication Instructions Recorded Confirmed Type Atenolol [Tenormin] 50 mg PO BID 09/05/14 06/12/17 History Ibuprofen [Motrin] 800 mg PO TID PRN 12/11/14 06/12/17 History Naproxen 500 mg PO BID-W/MEALS 07/15/15 06/12/17 History ALPRAZolam [Xanax] 1 mg PO TID 05/07/17 06/12/17 History Atomoxetine HCl 80 mg PO DAILY 05/07/17 06/12/17 History Buprenorphine HCl/Naloxone HCl 1 film SL TID 05/07/17 06/12/17 History [Suboxone 8 mg-2 mg Sl Film] Doxepin HCl [SINEquan] 200 mg PO HS 05/07/17 06/12/17 History Phentermine HCl [Adipex-P] 37.5 mg PO QAM 05/07/17 06/12/17 History Promethazine 6.25MG/5Ml [Phenergan 5 mg PO TID PRN 06/12/17 06/12/17 History Syrup] Allergies Allergy/AdvReac Type Severity Reaction Status Date / Time No Known Allergies Allergy Verified 06/12/17 10:48 Physical Examination - Vital Signs Vital Signs: Vital Signs Temp Pulse Resp BP BP Pulse Ox 06/13/17 15:36 98 F 70 20 90/47 97 06/13/17 12:00 97.4 F L 81 20 113/71 98 06/13/17 10:31 71 97/62 06/13/17 10:14 72 96/63 06/13/17 09:28 63 88/46 06/13/17 09:10 97.7 F 59 L 20 81/49 64/24 95 06/13/17 09:00 20 06/13/17 04:00 96.0 F L 65 17 81/50 94 L 06/13/17 00:00 96.3 F L 64 17 70/40 76/41 06/12/17 20:00 97.2 F L 60 18 88/50 95 Intake and Output 06/13/17 06/13/17 06/13/17 06:59 14:59 22:59 Intake Total 0536 648 3790 Output Total 500 750 900 Balance 950 55 437 Intake: IV 250 1000 Lactated Ringers 1,000 ml 250 1000 @ 999 mls/hr IV .Q1H1M [facility]AIS Rx#:[id number] Intake, IV Titration 1450 Amount Lactated Ringers 1,000 ml 1250 @ 125 mls/hr IV .Q8H THAIS Rx#:[id number] Sodium Chloride 0.9% 1, 200 000 ml @ 80 mls/hr IV . [id number] [facility]AIS Rx#:[id number] Oral 555 337 Output: Urine 500 750 900 Other: Voiding Method Toilet Toilet Toilet # Voids 1 Weight 98.9 kg - Constitutional General appearance: obese - EENT EENT: PERRL, hearing intact, vision intact - Respiratory Respiratory: lungs clear - Cardiovascular Cardiovascular: regular rate, normal S1, normal S2 - Integumentary Integumentary: normal - Neurologic Cranial nerve examination: PERRL, EOMI, VFF, face symmetric, tongue midline Sensorimotor examination: intact Detailed motor examination: grossly full strength in all extremities Detailed sensory examination: intact Reflexes: 2+: bicep - Psychiatric Psychiatric: mood/affect appropriate Results - Laboratory Findings CBC and BMP: 06/12/17 10:40 06/13/17 06:12 Abnormal Lab Findings: Abnormal Labs 06/12/17 06/12/17 06/12/17 10:40 10:40 10:40 APTT 21.0 L D-Dimer 0.70 H Chloride BUN 35 H Creatinine 1.99 H POC Glucose (mg/dL) Magnesium 1.5 L Total Creatine Kinase 342 H CK-MB (CK-2) 8.3 H* Urine Protein Ur Leukocyte Esterase Urine WBC Hyaline Casts Ur Barbiturates Screen U Tricyclic Antidepress Ur Amphetamines Screen U Methamphetamines Scrn U Benzodiazepines Scrn 06/13/17 06/13/17 06/13/17 06:12 09:11 09:11 APTT D-Dimer Chloride 110 H BUN 31 H Creatinine POC Glucose (mg/dL) Magnesium Total Creatine Kinase CK-MB (CK-2) Urine Protein Trace H Ur Leukocyte Esterase Moderate H Urine WBC 9 H Hyaline Casts 3 H Ur Barbiturates Screen Detected H U Tricyclic Antidepress Detected H Ur Amphetamines Screen Detected H U Methamphetamines Scrn Detected H U Benzodiazepines Scrn Detected H 06/13/17 16:35 APTT D-Dimer Chloride BUN Creatinine POC Glucose (mg/dL) 110 H Magnesium Total Creatine Kinase CK-MB (CK-2) Urine Protein Ur Leukocyte Esterase Urine WBC Hyaline Casts Ur Barbiturates Screen U Tricyclic Antidepress Ur Amphetamines Screen U Methamphetamines Scrn U Benzodiazepines Scrn Assessment and Plan (1) Syncope and collapse Current Visit: Yes Status: Acute SNOMED Code(s): 102478658 (2) Dehydration Current Visit: Yes Status: Acute SNOMED Code(s): 56573339 (3) Seizure disorder Current Visit: Yes Status: Acute SNOMED Code(s): 982318345 Plan: The patient has likely had a seizure. She has no recollection of the event and she had no warning. Her daughter saw some tonic activity as well as some jerking of the limbs. Her EEG is also abnormal. The patient was advised that she should not be operating any motorized vehicle until spell free for 6 months. She states she does not drive. Recommend further evaluation with MRI of the brain. We'll start patient on Depakote
[2017-06-13] MEDS: DIVALPROEX 500 MG TABLET.DR PO SCH (20:53)
[2017-06-13 20:54] LABS: Glucose,Whole Blood 93 mg/dL (75-99)
--- NOTE | 2017-06-13 21:46 | EEG ---
ELECTROENCEPHALOGRAM REPORT DATE OF EE06/13/2017. REFERRING PHYSICIAN: Dr. Li ELECTROENCEPHALOGRAPHIC EXAMINATION REPORT: INDICATION FOR EXAMINATION: This patient is a 56-year-old female being evaluated for acute cause syncope versus seizure. The patient with fall with subsequent head trauma. AGE: [age]. EEG FINDINGS: A routine 21 channel awake digital EEG recording was accomplished utilizing the 10-20 international system with bipolar and referential montages. The background activity in the most alert resting state consists of a low to medium amplitude, poorly developed and poorly sustained 5-6 Hz activity over the posterior head regions. This posterior rhythm attenuates minimally to eye opening. There is a small amount of low amplitude 18-20 Hz beta activity seen maximally over the anterior head regions. Muscle and movement artifact was observed on several occasions during the tracing. Hyperventilation was not performed. Photic stimulation at flash frequencies of 2-30 Hz produced a minimal occipital driving response. The main feature of this tracing is the occurrence on several occasions of bitemporal sharp waves. IMPRESSION: This EEG is abnormal due to the finding of bitemporal sharp wave activity suggesting possibility of seizure disorder of deep level origin. Clinical correlation is strongly recommended. MMODL / IJN: [id number] /
[2017-06-14] MEDS: ALPRAZolam 1 MG TAB PO SCH ×2 (04:41→16:03)
[2017-06-14] MEDS: ACETAMINOPHEN TAB 325 MG TAB PO PRN ×2 (04:43→09:43)
[2017-06-14] MEDS: LACTATED RINGERS 1,000 ML IV SCH ×2 (04:46→14:31)
--- NOTE | 2017-06-14 05:39 | PN ---
PROGRESS NOTE DATE OF SERVICE: 06/13/2017 PRESENTING COMPLAINT: Episode of passing out. INTERVAL HISTORY: This patient presented with episode of passing out, felt to be witnessed seizure, now has also positive EEG. The patient was a bit weak this morning. Patient also has associated acute renal failure. EEG did show seizure activity. Also seen by Psychiatry, who did put some of the medications back. They did stop patient's Sinequan at night. Overall, patient is feeling better. The bump on the head is feeling better. Patient this morning was hypotensive. I did give the patient fluid boluses REVIEW OF SYSTEMS: Review of systems done for constitutional, cardiovascular, GI, pulmonary; relevant findings as above. CURRENT MEDICATIONS: Current medications are reviewed that include Depakote, that is a new medication and the patient's doxepin has been discontinued. PHYSICAL EXAMINATION: On examination, temperature 97.9, pulse 65, respiration 16, blood pressure 115/60, pulse ox 97% on room air. GENERAL APPEARANCE: Lying in bed, awake. EYES: Pupils are equal. Conjunctivae normal. HENT: External appearance of nose and ears normal. Oral cavity normal. NECK: JVD not raised. Mass not palpable. RESPIRATORY: Effort Lungs are clear. CARDIOVASCULAR: First and second sounds normal, no edema. ABDOMEN: Soft, nontender. Liver and spleen not palpable. PSYCHIATRY: Alert and oriented x3. Mood and affect normal. INVESTIGATIONS: EEG showing seizure-like activity. Potassium 4.2. Creatinine 0.90. ASSESSMENT: 1. Two episodes of seizure activity, tonic clonic type, confirmed by EEG. 2. Blunt head injury secondary to a fall with no residual. 3. Acute renal failure probably interstitial nephritis nonoliguric secondary to NSAIDs with biochemical improvement. 4. Chronic fibromyalgia. 5. Obesity; body mass index 39.3. 6. Hypotensive episode, now improved with IV fluids. 7. Obsessive compulsive disorder. 8. Agoraphobia. 9. Anxiety, not otherwise specified. 10.Chronic low back pain. PLAN: The patient is put on Depakote. Also the patient's Sinequan has been discontinued. The patient's Tenormin also this morning because of low blood pressure, has been held. Continue current medication and treatment plan. Care was discussed with the patient. MMODL / IJN: [id number] /
[2017-06-14 07:57] LABS: Anion Gap 8 mmol/L; Blood Urea Nitrogen 21 mg/dL (7-17); Calcium 9.1 mg/dL (8.4-10.2); Carbon Dioxide 28 mmol/L (22-30); Chloride 106 mmol/L (98-107); Glucose 86 mg/dL (74-99); Potassium 4.8 mmol/L (3.5-5.1); Sodium 142 mmol/L (137-145)
[2017-06-14] MEDS ORDERED: FLUoxetine HCL 20 MG CAP PO SCH (09:00)
[2017-06-14] MEDS: DIVALPROEX 500 MG TABLET.DR PO SCH (09:27)
[2017-06-14] MEDS: ENOXAPARIN 40 MG/0.4 ML SYRINGE SQ SCH (09:27)
[2017-06-14] MEDS: Buprenorphine Hcl/Naloxone Hcl [Suboxone 8 Mg-2 Mg Sl Film] 1 FILM SL SCH ×2 (10:27→14:53)
[2017-06-14 15:05] VITALS: BP 98/57; PULSE 69; RESP 18; TEMP 96.9
--- NOTE | 2017-06-16 20:57 | DS ---
DISCHARGE SUMMARY DATE OF ADMISSION: 06/12/2017. DATE OF DISCHARGE: 06/14/2017 FINAL DIAGNOSES: 1. Tonic-clonic seizure. 2. Blunt head injury secondary to fall with no residual. 3. Acute renal failure, probably interstitial nephritis, non-oliguric, secondary to non-steroidal anti-inflammatories, with significant improvement. 4. Chronic fibromyalgia. 5. Obesity; body mass index of 39.3. 6. Hypotensive episode, improved with IV fluids, probably due to volume loss. 7. Obsessive-compulsive disorder and agoraphobia. 8. Anxiety not otherwise specified. 9. Chronic low back pain, probably from arthritis. HOSPITAL COURSE: This is a 56-year-old patient of Dr. Kaba who presented with two seizure episodes, including passing out and falling on the floor and hitting the back of her head. CT scan was negative acutely. EEG did confirm seizure activity. Patient's renal ultrasound was unremarkable. Patient's creatinine was 1.99 on admission and did drop down to 0.66. Patient's urine drug screen was positive for barbiturates, tricyclic antidepressants, amphetamines, methamphetamines, benzodiazepine. Patient was seen by Dr. Spring from Psychiatry, who okayed the patient to continue on her Xanax and also continue on her Prozac. Patient's Sinequan was discontinued and patient was informed by her to follow up with Dr. Rico. She was also asked to discuss with him about Strattera and Adipex-P. Patient was doing much better, up and about, by the time of discharge. CONSULTATIONS: 1. Dr. Samy Damico from Neurology. 2. Dr. Spring from Psychiatry. PHYSICAL EXAMINATION: LUNGS: Fair air entry. CARDIOVASCULAR: First and second sounds normal. PSYCH: Alert and oriented x3. DISCONTINUED MEDICATIONS: 1. Tenormin for low heart rate and low blood pressure. 2. Motrin. 3. Naproxen. 4. Sinequan. DISCHARGE MEDICATIONS: 1. Xanax 1 mg p.o. t.i.d. 2. Atomoxetine 80 mg p.o. daily. 3. Suboxone 8 mg/2 mg sublingually t.i.d. 4. Adipex-P 37.5 p.o. daily. 5. Phenergan 5 mg p.o. t.i.d. p.r.n. 6. Depakote 500 mg p.o. b.i.d. 7. Prozac 40 mg p.o. daily. FOLLOWUP: 1. Follow up with her psychiatrist, Dr. Rico, in one week. 2. Follow up with Dr. Damico in one week. 3. Follow up with Dr. Andrew in 2 weeks. 4. Follow up with Dr. Kaba on 06/24/2017. Patient advised about seizure precautions and no driving until further notice. Discussion and discharge planning more than 35 minutes. MMODL / IJN: [id number] /
== END 2017-06-14 16:45 | disposition home or self-care (01) | DRG 101 ==
LOC: EC 10:29 → 6SEL 13:04 → 3SUR 06-13 23:23
PROVIDERS: ADMIT Hospitalist; ATTEND Hospitalist
DX: G40.89 Other seizures (principal); N17.9 Acute kidney failure, unspecified; S09.90XA Unspecified injury of head, initial encounter; I95.9 Hypotension, unspecified; N10 Acute pyelonephritis; E86.0 Dehydration; Z96.653 Presence of artificial knee joint, bilateral; E66.9 Obesity, unspecified; F32.9 Major depressive disorder, single episode, unspecified; F40.00 Agoraphobia, unspecified; F41.0 Panic disorder [episodic paroxysmal anxiety]; F42.9 Obsessive-compulsive disorder, unspecified; G89.29 Other chronic pain; I10 Essential (primary) hypertension; M19.90 Unspecified osteoarthritis, unspecified site; M79.7 Fibromyalgia; T39.395A Adverse effect of other nonsteroidal anti-inflammatory drugs [NSAID], initial encounter; W18.30XA Fall on same level, unspecified, initial encounter; Z68.39 Body mass index [BMI] 39.0-39.9, adult; Z82.5 Family history of asthma and other chronic lower respiratory diseases; Z90.710 Acquired absence of both cervix and uterus; Z79.1 Long term (current) use of non-steroidal anti-inflammatories (NSAID); Z79.891 Long term (current) use of opiate analgesic; Z79.899 Other long term (current) drug therapy; T42.4X6A Underdosing of benzodiazepines, initial encounter; Z91.128 Patient's intentional underdosing of medication regimen for other reason; Z81.8 Family history of other mental and behavioral disorders; Z81.1 Family history of alcohol abuse and dependence; F40.240 Claustrophobia
CPT/HCPCS: 36415; 70450; 72125; 76770; 80048; 80053; 80306; 80320; 81001; 82140; 82550; 82553; 83735; 84484; 85025; 85379; 85610; 85730; 95819; 96361; 96365; 99291

== ENCOUNTER 2017-06-18 09:04 | Emergency (ER) | payer MEDICARE ==
[2017-06-18] MEDS ORDERED: SODIUM CHLORIDE 0.9% 1,000 ML IV STA (09:30)
[2017-06-18 09:53] LABS: Basophils % (A) 1 %; Eosinophils # (A) 0.3 k/uL (0-0.7); Eosinophils % (A) 6 %; HCT 39.6 % (34.0-46.0); HGB 12.9 gm/dL (11.4-16.0); Lymphocytes % (A) 23 %; MCH 28.9 pg (25.0-35.0); MCHC 32.6 g/dL (31.0-37.0); MCV 88.8 fL (80.0-100.0); Mean Platelet Volume 10.2; Monocytes # (A) 0.2 k/uL (0-1.0); Monocytes % (A) 6 %; Neutrophils # (A) 2.6 k/uL (1.3-7.7); Neutrophils % (A) 63 %; Platelet Count 223 k/uL (150-450); RBC 4.46 m/uL (3.80-5.40); RDW 13.6 % (11.5-15.5); WBC 4.2 k/uL (3.8-10.6)
--- NOTE | 2017-06-18 10:15 | ED ---
General Adult HPI - General Source: patient, RN notes reviewed Mode of arrival: EMS Limitations: no limitations <Sara Finch - Last Filed: 06/18/17 12:45> <Los Macario - Last Filed: 06/19/17 10:11> - General Chief complaint: Weakness Stated complaint: General Weakness Time Seen by Provider: 06/18/17 09:15 - History of Present Illness Initial comments: 56-year-old female presents to the emergency department with a chief complaint of weakness and fall. Patient rolled off the couch today. They called the ambulance. We'll get the patient up to get the patient up she was having hard time walking. We spoke with the states that she is at her normal baseline at this time. Patient denies any nausea or vomiting. She states she just hasn't has a little bit of left-sided head pain from the fall. She states that she is otherwise just tired which is typical for her. She states there is been no other symptoms. She denies any nausea or vomiting. She states it was a simple slip off the couch. There is no loss of consciousness she did not pass out.Patient denies any recent fever, chills, shortness of breath, chest pain, back pain, abdominal pain, nausea vomiting, numbness or tingling, dysuria or hematuria, constipation or diarrhea, visual changes, or any other current symptoms. (Sara Finch) - Related Data Home Medications Medication Instructions Recorded Confirmed ALPRAZolam [Xanax] 1 mg PO TID 05/07/17 06/18/17 Atomoxetine HCl 80 mg PO DAILY 05/07/17 06/18/17 Buprenorphine HCl/Naloxone HCl 1 film SL TID 05/07/17 06/18/17 [Suboxone 8 mg-2 mg Sl Film] Phentermine HCl [Adipex-P] 37.5 mg PO QAM 05/07/17 06/18/17 Promethazine 6.25MG/5Ml [Phenergan 5 mg PO TID PRN 06/12/17 06/18/17 Syrup] Previous Rx's Medication Instructions Recorded Divalproex [Depakote] 500 mg PO BID #60 tablet. 06/14/17 FLUoxetine HCL [PROzac] 40 mg PO DAILY #30 cap 06/14/17 Allergies Allergy/AdvReac Type Severity Reaction Status Date / Time No Known Allergies Allergy Verified 06/18/17 12:18 Review of Systems ROS Other: All systems not noted in ROS Statement are negative. <Sara Finch - Last Filed: 06/18/17 12:45> ROS Other: All systems not noted in ROS Statement are negative. <Los Macario - Last Filed: 06/19/17 10:11> ROS Statement: Those systems with pertinent positive or pertinent negative responses have been documented in the HPI. Past Medical History Past Medical History: Fibromyalgia, Hypertension, Osteoarthritis (OA) Additional Past Medical History / Comment(s): agoraphobia, ocd, , CHRONIC BACK PAIN, DDD,MIGRAINES, UTI, anxiety and depression History of Any Multi-Drug Resistant Organisms: None Reported Past Surgical History: Section, Hysterectomy, Joint Replacement Additional Past Surgical History / Comment(s): lumpectomy/cyst (BENIGN) removed lt breast, total hysterectomy, colonoscopy, rt foot sx BENIGN TUMOR REMOVED., luke knee replacements Past Anesthesia/Blood Transfusion Reactions: No Reported Reaction Additional Past Anesthesia/Blood Transfusion Reaction / Comment(s): CLAUSTERPHOBIA Past Psychological History: Anxiety, Depression, Panic Disorder Smoking Status: Never smoker Past Alcohol Use History: None Reported Past Drug Use History: None Reported - Past Family History Father Additional Family Medical History / Comment(s): ALL PT KNOWS ABOUT HER DAD WAS HE WAS AN ALCOHOLIC/SMOKER FROM EMPHYSEMA 6 YEARS AGO. Mother Family Medical History: Cancer Additional Family Medical History / Comment(s): UNK TYPE OF CANCER, MIGRAINES <Sara Finch - Last Filed: 06/18/17 12:45> General Exam Limitations: no limitations <Sara Finch - Last Filed: 06/18/17 12:45> <Los Macario - Last Filed: 06/19/17 10:11> - General Exam Comments Initial Comments: General: The patient is awake and alert, in no distress, and does not appear acutely ill. Eye: Pupils are equal, round and reactive to light, extra-ocular movements are intact; there is normal conjunctiva bilaterally. No signs of icterus. Ears, nose, mouth and throat: There are moist mucous membranes and no oral lesions. Neck: The neck is supple, there is no tenderness. Cardiovascular: There is a regular rate and rhythm. No murmur, rub or gallop is appreciated. Respiratory: Lungs are clear to auscultation, respirations are non-labored, breath sounds are equal. No wheezes, stridor, rales, or rhonchi. Gastrointestinal: Soft, non-distended, non-tender abdomen without masses or organomegaly noted. There is no rebound or guarding present. No CVA tenderness. Bowel sounds are unremarkable. Back: There is no tenderness to palpation in the midline. There is no obvious deformity. No rashes noted. Musculoskeletal: Normal ROM, no tenderness, There is no pedal edema. There is no calf tenderness or swelling. Sensation intact. Pulses equal bilaterally 2+. Neurological: CN II-XII intact, There are no obvious motor or sensory deficits. Coordination appears grossly intact. Speech is normal. Skin: Skin is warm and dry and no rashes or lesions are noted. Psychiatric: Cooperative, appropriate mood & affect,depression, normal judgment. Patient denies any suicidal homicidal ideation (Sara Finch) Course <Sara Finch - Last Filed: 06/18/17 12:45> <Los Macario - Last Filed: 06/19/17 10:11> Vital Signs 06/18/17 06/18/17 06/18/17 09:11 11:48 12:43 Temperature 97.5 F L 96.8 F L Pulse Rate 96 89 83 Respiratory 16 16 17 Rate Blood Pressure 122/76 169/101 123/69 O2 Sat by Pulse 95 95 95 Oximetry Was brought to my attention this morning by RN that patients her cultures grew gram-positive cocci 6," the patient patient stated that she has a no fever, patient was informed about the positive blood cultures and I informed her that she needs Augmentin 1 g by mouth twice a day, prescription was given to an charge nurse Bouchra to fax that to [facility] in [facility], patient was advised to come to the ER if he develops a fever chills weakness she agreed with that (Los Macario) Medical Decision Making - Lab Data Result diagrams: 06/18/17 09:22 06/18/17 10:35 - Radiology Data Radiology results: report reviewed, image reviewed <Sara Finch - Last Filed: 06/18/17 12:45> - Lab Data Result diagrams: 06/18/17 09:22 06/18/17 10:35 <Los Macario - Last Filed: 06/19/17 10:11> - Medical Decision Making 56-year-old female presents for fall off the couch. At this time patient does admit that she is depressed and she was recently evaluated by psych on her previous admission. She does have a daughter that lives with her that causes her to have more depression. The patient is at baseline per the . He states she does have a hard time getting around due to knees that were placed 7 years ago. We discussed that she may need therapy for the sneezing we discussed that we will give him follow-up to orthopedics. We discussed that she needs to also follow-up with her psychiatrist/counselor. We discussed the importance of close outpatient follow-up we discussed watching her medications as well. The patient stated that she understood and she is depressed and that is why she has been so tired and sleepy lately at this time the does feel comfortable taking her home. All questions have been answered. This time she will be discharged. (Sara Finch) - Lab Data Lab Results 06/18/17 06/18/17 06/18/17 Range/Units 09:22 09:22 09:22 WBC 4.2 (3.8-10.6) k/uL RBC 4.46 (3.80-5.40) m/uL Hgb 12.9 (11.4-16.0) gm/dL Hct 39.6 (34.0-46.0) % MCV 88.8 (80.0-100.0) fL MCH 28.9 (25.0-35.0) pg MCHC 32.6 (31.0-37.0) g/dL RDW 13.6 (11.5-15.5) % Plt Count 223 (150-450) k/uL Neutrophils % 63 % Lymphocytes % 23 % Monocytes % 6 % Eosinophils % 6 % Basophils % 1 % Neutrophils # 2.6 (1.3-7.7) k/uL Lymphocytes # 1.0 (1.0-4.8) k/uL Monocytes # 0.2 (0-1.0) k/uL Eosinophils # 0.3 (0-0.7) k/uL Basophils # 0.0 (0-0.2) k/uL PT 10.0 (9.0-12.0) sec INR 1.0 (<1.2) APTT 22.6 (22.0-30.0) sec Sodium (137-145) mmol/L Potassium (3.5-5.1) mmol/L Chloride (98-107) mmol/L Carbon Dioxide (22-30) mmol/L Anion Gap mmol/L BUN (7-17) mg/dL Creatinine (0.52-1.04) mg/dL Est GFR (CKD-EPI)AfAm (>60 ml/min/1.73 sqM) Est GFR (CKD-EPI)NonAf (>60 ml/min/1.73 sqM) Glucose (74-99) mg/dL Plasma Lactic Acid Gerry 1.5 (0.7-2.0) mmol/L Calcium (8.4-10.2) mg/dL Phosphorus (2.5-4.5) mg/dL Magnesium (1.6-2.3) mg/dL Total Bilirubin (0.2-1.3) mg/dL AST (14-36) U/L ALT (9-52) U/L Alkaline Phosphatase (38-126) U/L Total Creatine Kinase (30-135) U/L CK-MB (CK-2) (0.0-2.4) ng/mL CK-MB (CK-2) Rel Index Troponin I (0.000-0.034) ng/mL Total Protein (6.3-8.2) g/dL Albumin (3.5-5.0) g/dL Urine Color Urine Appearance (Clear) Urine pH (5.0-8.0) Ur Specific [place] (1.001-1.035) Urine Protein (Negative) Urine Glucose (UA) (Negative) Urine Ketones (Negative) Urine Blood (Negative) Urine Nitrite (Negative) Urine Bilirubin (Negative) Urine Urobilinogen (<2.0) mg/dL Ur Leukocyte Esterase (Negative) Urine Opiates Screen (NotDetected) Ur Oxycodone Screen (NotDetected) Urine Methadone Screen (NotDetected) Ur Propoxyphene Screen (NotDetected) Ur Barbiturates Screen (NotDetected) U Tricyclic Antidepress (NotDetected) Ur Phencyclidine Scrn (NotDetected) Ur Amphetamines Screen (NotDetected) U Methamphetamines Scrn (NotDetected) U Benzodiazepines Scrn (NotDetected) Urine Cocaine Screen (NotDetected) U Marijuana (THC) Screen (NotDetected) 06/18/17 06/18/17 06/18/17 Range/Units 10:35 10:35 11:51 WBC (3.8-10.6) k/uL RBC (3.80-5.40) m/uL Hgb (11.4-16.0) gm/dL Hct (34.0-46.0) % MCV (80.0-100.0) fL MCH (25.0-35.0) pg MCHC (31.0-37.0) g/dL RDW (11.5-15.5) % Plt Count (150-450) k/uL Neutrophils % % Lymphocytes % % Monocytes % % Eosinophils % % Basophils % % Neutrophils # (1.3-7.7) k/uL Lymphocytes # (1.0-4.8) k/uL Monocytes # (0-1.0) k/uL Eosinophils # (0-0.7) k/uL Basophils # (0-0.2) k/uL PT (9.0-12.0) sec INR (<1.2) APTT (22.0-30.0) sec Sodium 143 (137-145) mmol/L Potassium 4.8 (3.5-5.1) mmol/L Chloride 104 (98-107) mmol/L Carbon Dioxide 30 (22-30) mmol/L Anion Gap 9 mmol/L BUN 17 (7-17) mg/dL Creatinine 0.57 (0.52-1.04) mg/dL Est GFR (CKD-EPI)AfAm >90 (>60 ml/min/1.73 sqM) Est GFR (CKD-EPI)NonAf >90 (>60 ml/min/1.73 sqM) Glucose 87 (74-99) mg/dL Plasma Lactic Acid Gerry (0.7-2.0) mmol/L Calcium 9.0 (8.4-10.2) mg/dL Phosphorus 3.9 (2.5-4.5) mg/dL Magnesium 2.0 (1.6-2.3) mg/dL Total Bilirubin 0.1 L (0.2-1.3) mg/dL AST 27 (14-36) U/L ALT 23 (9-52) U/L Alkaline Phosphatase 72 (38-126) U/L Total Creatine Kinase 375 H (30-135) U/L CK-MB (CK-2) 3.6 H* (0.0-2.4) ng/mL CK-MB (CK-2) Rel Index 1.0 Troponin I <0.012 (0.000-0.034) ng/mL Total Protein 6.3 (6.3-8.2) g/dL Albumin 3.5 (3.5-5.0) g/dL Urine Color Light Yellow Urine Appearance Clear (Clear) Urine pH 7.0 (5.0-8.0) Ur Specific [place] 1.008 (1.001-1.035) Urine Protein Negative (Negative) Urine Glucose (UA) Negative (Negative) Urine Ketones Negative (Negative) Urine Blood Negative (Negative) Urine Nitrite Negative (Negative) Urine Bilirubin Negative (Negative) Urine Urobilinogen <2.0 (<2.0) mg/dL Ur Leukocyte Esterase Negative (Negative) Urine Opiates Screen Not Detected (NotDetected) Ur Oxycodone Screen Not Detected (NotDetected) Urine Methadone Screen Not Detected (NotDetected) Ur Propoxyphene Screen Not Detected (NotDetected) Ur Barbiturates Screen Detected H (NotDetected) U Tricyclic Antidepress Not Detected (NotDetected) Ur Phencyclidine Scrn Not Detected (NotDetected) Ur Amphetamines Screen Not Detected (NotDetected) U Methamphetamines Scrn Not Detected (NotDetected) U Benzodiazepines Scrn Detected H (NotDetected) Urine Cocaine Screen Not Detected (NotDetected) U Marijuana (THC) Screen Not Detected (NotDetected) Disposition Time of Disposition: 12:45 <Sara Finch - Last Filed: 06/18/17 12:45> <Los Macario - Last Filed: 06/19/17 10:11> Clinical Impression: Fall, Chronic knee pain, Chronic back pain, Depression Disposition: HOME SELF-CARE Condition: Stable Instructions: Depression (ED) Additional Instructions: Please use medication as discussed. Please follow up with family doctor if symptoms have not improved over the next two days. Please return to the emergency room if your symptoms increase or worsen or for any other concerns. Referrals: Cosme Kaba MD [Primary Care Provider] - 1-2 days Addendum entered and electronically signed by Sara Finch PA-C 06/18/17 13:11: Sinus rhythm with fusion complexes, ventricular rate 91, para: 46, QRS duration 80
[2017-06-18 10:31] LABS: Partial Thromboplastin Time 22.6 sec (22.0-30.0)
--- NOTE | 2017-06-18 10:32 | CT ---
EXAMINATION TYPE: CT brain gian larson con DATE OF EXAM: 06/18/2017 COMPARISON: Previous CT scan of the brain dated 06/13/2017 HISTORY: fall CT DLP: 1766.7 mGycm Automated exposure control for dose reduction was used. TECHNIQUE: CT scan of the head and cervical spine are performed without contrast. FINDINGS: BRAIN: Central structures are midline. There is no evidence of hydrocephalus. There is mild right fro ntal lobe atrophy present bilaterally. There is no mass effect, midline shift or intracranial blood. Visualized portions of the paranasal sinuses and mastoids are clear. The bony calvarium is intact. IMPRESSION: 1. NO ACUTE INTRACRANIAL ABNORMALITY. 2. STABLE, MILD BILATERAL FRONTAL LOBE ATROPHY. CERVICAL SPINE: There is atelectatic change in the dependent portions of the upper lobes. There is mi ld interstitial change. Prevertebral soft tissues appear normal. Vertebral body height and alignment are maintained. Atlantoaxial relationships are normal. There is d iffuse degenerative disc disease with relative sparing of the C2-3 articulation. This hypertrophic sp ondylosis most marked at C5-6. There is diffuse uncovertebral joint disease. There is mild facet arth ropathy at C3-4 and C4-5. No definite protrusion is seen. No fractures are identified. IMPRESSION: 1. NO ACUTE OSSEOUS LESION. 2. DEGENERATIVE CHANGE.
--- NOTE | 2017-06-18 10:40 | XR ---
EXAMINATION TYPE: XR lumbar spine 2 or 3V , 3 VIEWS DATE OF EXAM ORDERED: 06/18/2017 HISTORY: Pain. COMPARISON: Previous study dated 09/19/2016. FINDINGS: There is a degenerative grade 1 spondylolisthesis of L5 on S1. Alignment is otherwise norm al. There is disc space loss at L4-5 and L5-S1. No fractures are seen. The pedicles are intact. IMPRESSION: 1. NO ACUTE OSSEOUS LESION. 2. DEGENERATIVE CHANGE.
[2017-06-18 11:05] LABS: ALT 23 U/L (9-52); AST 27 U/L (14-36); Albumin 3.5 g/dL (3.5-5.0); Alkaline Phosphatase 72 U/L (38-126); Anion Gap 9 mmol/L; Blood Urea Nitrogen 17 mg/dL (7-17); Carbon Dioxide 30 mmol/L (22-30); Chloride 104 mmol/L (98-107); Glucose 87 mg/dL (74-99); Phosphorus 3.9 mg/dL (2.5-4.5); Potassium 4.8 mmol/L (3.5-5.1); Sodium 143 mmol/L (137-145); Total Bilirubin 0.1 mg/dL (0.2-1.3); Total Protein 6.3 g/dL (6.3-8.2)
[2017-06-18 11:20] LABS: Creatine Kinase 375 U/L (30-135)
[2017-06-18 11:32] LABS: Troponin I <0.012 ng/mL (0.000-0.034)
[2017-06-18 11:38] LABS: Creatine Kinase MB 3.6 ng/mL (0.0-2.4)
[2017-06-18 12:01] LABS: Appearance,Urine Clear (Clear); Bilirubin,Urine Negative (Negative); Blood,Urine Negative (Negative); Color,Urine Light Yellow; Glucose,Urine (UA) Negative (Negative); Ketones,Urine Negative (Negative); Leukocyte Esterase,Urine Negative (Negative); Nitrite,Urine Negative (Negative); Protein,Urine Negative (Negative); Specific Gravity,Urine 1.008 (1.001-1.035); Urobilinogen,Urine <2.0 mg/dL (<2.0)
[2017-06-18 12:24] LABS: Amphetamine Screen,Urine Not Detected (NotDetected); Barbiturate Screen,Urine Detected (NotDetected); Benzodiazepines Screen,Urine Detected (NotDetected); Cocaine Screen,Urine Not Detected (NotDetected); Methadone Screen, Urine Not Detected (NotDetected); Opiate Screen,Urine Not Detected (NotDetected); Oxycodone Screen, Urine Not Detected (NotDetected); Phencyclidine Screen,Urine Not Detected (NotDetected); Tricyclic Antidepressant,Urine Not Detected (NotDetected); Urn Cannabinoid Scrn Not Detected (NotDetected)
[2017-06-18 12:45] VITALS: BP 123/69; PULSE 83; RESP 17; TEMP 96.8
== END 2017-06-18 12:50 | disposition home or self-care (01) ==
LOC: EC 09:04
DX: F32.9 Major depressive disorder, single episode, unspecified (principal); G89.29 Other chronic pain; M25.569 Pain in unspecified knee; M54.9 Dorsalgia, unspecified; R51 Headache; R53.1 Weakness; F41.9 Anxiety disorder, unspecified; F41.0 Panic disorder [episodic paroxysmal anxiety]; I10 Essential (primary) hypertension; Z79.891 Long term (current) use of opiate analgesic; Z79.899 Other long term (current) drug therapy; Z96.653 Presence of artificial knee joint, bilateral; Z87.39 Personal history of other diseases of the musculoskeletal system and connective tissue; W01.190A Fall on same level from slipping, tripping and stumbling with subsequent striking against furniture, initial encounter
CPT/HCPCS: 36415; 70450; 72100; 72125; 80053; 80306; 81003; 82550; 82553; 83605; 83735; 84100; 84484; 85025; 85610; 85730; 87040; 87077; 87086; 87186; 93005; 96360; 96361; 99285

== ENCOUNTER 2017-06-27 22:40 | Observation (INO) | payer MEDICARE ==
[2017-06-27] MEDS ORDERED: SODIUM CHLORIDE 0.9% 1,000 ML IV ONE (23:35)
--- NOTE | 2017-06-27 23:39 | ED ---
General Adult HPI - General Chief complaint: Altered Mental Status Stated complaint: Mental Health Time Seen by Provider: 06/27/17 23:15 Source: patient, family, RN notes reviewed Mode of arrival: ambulatory Limitations: no limitations - History of Present Illness Initial comments: Patient is a pleasant 56-year-old female presenting to the emergency department for confusion. last saw patient around 1 or 2 this afternoon and she was acting normal at this time. He states patient does like her Xanax and may have taken too much. Patient admits to taking extra Xanax pills, approximately 5 or 6 however is not certain. These were 1 mg and she does have this prescribed today by her doctor. today felt patient was doing fine. Patient denies any suicidal ideation. Patient states it just makes her feel better. No isolated area of weakness. Patient did have a fall and hit her head for 5 days ago however was seen at that time and has been normal mental status up till today. - Related Data Home Medications Medication Instructions Recorded Confirmed ALPRAZolam [Xanax] 1 mg PO TID 05/07/17 06/18/17 Atomoxetine HCl 80 mg PO DAILY 05/07/17 06/18/17 Buprenorphine HCl/Naloxone HCl 1 film SL TID 05/07/17 06/18/17 [Suboxone 8 mg-2 mg Sl Film] Phentermine HCl [Adipex-P] 37.5 mg PO QAM 05/07/17 06/18/17 Promethazine 6.25MG/5Ml [Phenergan 5 mg PO TID PRN 06/12/17 06/18/17 Syrup] Previous Rx's Medication Instructions Recorded Divalproex [Depakote] 500 mg PO BID #60 tablet. 06/14/17 FLUoxetine HCL [PROzac] 40 mg PO DAILY #30 cap 06/14/17 Allergies Allergy/AdvReac Type Severity Reaction Status Date / Time No Known Allergies Allergy Verified 06/27/17 22:59 Review of Systems ROS Statement: Those systems with pertinent positive or pertinent negative responses have been documented in the HPI. ROS Other: All systems not noted in ROS Statement are negative. Constitutional: Denies: fever Eyes: Denies: eye pain ENT: Denies: ear pain Respiratory: Denies: cough Cardiovascular: Denies: chest pain Endocrine: Denies: fatigue Gastrointestinal: Denies: abdominal pain Genitourinary: Denies: dysuria Musculoskeletal: Denies: back pain Skin: Denies: rash Neurological: Reports: confusion. Denies: headache, weakness Psychiatric: Denies: suicidal thoughts Past Medical History Past Medical History: Fibromyalgia, Hypertension, Osteoarthritis (OA) Additional Past Medical History / Comment(s): agoraphobia, ocd, , CHRONIC BACK PAIN, DDD,MIGRAINES, UTI, anxiety and depression History of Any Multi-Drug Resistant Organisms: None Reported Past Surgical History: Section, Hysterectomy, Joint Replacement Additional Past Surgical History / Comment(s): lumpectomy/cyst (BENIGN) removed lt breast, total hysterectomy, colonoscopy, rt foot sx BENIGN TUMOR REMOVED., luke knee replacements Past Anesthesia/Blood Transfusion Reactions: No Reported Reaction Additional Past Anesthesia/Blood Transfusion Reaction / Comment(s): CLAUSTERPHOBIA Past Psychological History: Anxiety, Depression, Panic Disorder Smoking Status: Never smoker Past Alcohol Use History: None Reported Past Drug Use History: None Reported - Past Family History Father Additional Family Medical History / Comment(s): ALL PT KNOWS ABOUT HER DAD WAS HE WAS AN ALCOHOLIC/SMOKER FROM EMPHYSEMA 6 YEARS AGO. Mother Family Medical History: Cancer Additional Family Medical History / Comment(s): UNK TYPE OF CANCER, MIGRAINES General Exam Limitations: no limitations General appearance: alert, in no apparent distress Head exam: Present: atraumatic Eye exam: Present: normal appearance, PERRL, EOMI, nystagmus (Horizontal nystagmus) ENT exam: Present: normal oropharynx Neck exam: Present: normal inspection Respiratory exam: Present: normal lung sounds bilaterally Cardiovascular Exam: Present: regular rate, normal rhythm Expanded Peripheral pulses: 2+: Radial (R), Radial (L), Dorsalis Pedis (R), Dorsalis Pedis (L) GI/Abdominal exam: Present: soft. Absent: tenderness Extremities exam: Present: normal inspection. Absent: pedal edema, calf tenderness Neurological exam: Present: alert, altered, CN II-XII intact. Absent: motor sensory deficit Expanded Neurological exam: Present: protecting the airway Patient oriented to: Present: person. Absent: place, time Cranial nerves: EOM's Intact: Normal Sensory exam: Upper Extremity Light Touch: Normal, Lower Extremity Light Touch: Normal Motor strength exam: RUE: 5, LUE: 5, RLE: 5, LLE: 5 Eye Response: (4) open spontaneously Motor Response: (6) obeys commands Verbal Response: (4) confused conversation Psychiatric exam: Present: normal affect, normal mood Skin exam: Present: normal color Course Vital Signs 06/27/17 22:47 Temperature 97.4 F L Pulse Rate 98 Respiratory 16 Rate Blood Pressure 96/72 O2 Sat by Pulse 95 Oximetry EKG Findings - EKG Comments: EKG Findings:: Normal sinus rhythm 90. WI 142. QRS 80. QT 404. QTC 494. Normal axis. T wave inversion with downward QRS in V1 through V6. Medical Decision Making - Medical Decision Making Patient reevaluated and only somewhat improved. Patient is now oriented to place however still not time. Patient still with nystagmus. Patient presents with altered mental status and self-reported overdose of Xanax. Altered mental status is felt to be likely related to Xanax. Case was discussed with practitioner Wolf, who will admit for Dr. Sevilla, covering for Dr. sousa, who admits for Dr. talley - Lab Data Result diagrams: 06/28/17 01:18 06/28/17 01:18 Lab Results 06/28/17 06/28/17 06/28/17 Range/Units 01:00 01:18 01:18 WBC 5.6 (3.8-10.6) k/uL RBC 4.78 (3.80-5.40) m/uL Hgb 13.2 (11.4-16.0) gm/dL Hct 41.4 (34.0-46.0) % MCV 86.6 (80.0-100.0) fL MCH 27.7 (25.0-35.0) pg MCHC 32.0 (31.0-37.0) g/dL RDW 13.0 (11.5-15.5) % Plt Count 286 (150-450) k/uL Neutrophils % 58 % Lymphocytes % 30 % Monocytes % 7 % Eosinophils % 2 % Basophils % 1 % Neutrophils # 3.2 (1.3-7.7) k/uL Lymphocytes # 1.7 (1.0-4.8) k/uL Monocytes # 0.4 (0-1.0) k/uL Eosinophils # 0.1 (0-0.7) k/uL Basophils # 0.0 (0-0.2) k/uL PT (9.0-12.0) sec INR (<1.2) APTT (22.0-30.0) sec Sodium (137-145) mmol/L Potassium (3.5-5.1) mmol/L Chloride (98-107) mmol/L Carbon Dioxide (22-30) mmol/L Anion Gap mmol/L BUN (7-17) mg/dL Creatinine (0.52-1.04) mg/dL Est GFR (CKD-EPI)AfAm (>60 ml/min/1.73 sqM) Est GFR (CKD-EPI)NonAf (>60 ml/min/1.73 sqM) Glucose (74-99) mg/dL Calcium (8.4-10.2) mg/dL Total Bilirubin (0.2-1.3) mg/dL AST (14-36) U/L ALT (9-52) U/L Alkaline Phosphatase (38-126) U/L Total Creatine Kinase 74 (30-135) U/L CK-MB (CK-2) 1.3 (0.0-2.4) ng/mL CK-MB (CK-2) Rel Index 1.8 Troponin I <0.012 (0.000-0.034) ng/mL Total Protein (6.3-8.2) g/dL Albumin (3.5-5.0) g/dL Urine Color Yellow Urine Appearance Clear (Clear) Urine pH 6.5 (5.0-8.0) Ur Specific [place] 1.027 (1.001-1.035) Urine Protein Trace H (Negative) Urine Glucose (UA) Negative (Negative) Urine Ketones Negative (Negative) Urine Blood Negative (Negative) Urine Nitrite Negative (Negative) Urine Bilirubin Negative (Negative) Urine Urobilinogen 3.0 (<2.0) mg/dL Ur Leukocyte Esterase Negative (Negative) Urine Opiates Screen Not Detected (NotDetected) Ur Oxycodone Screen Not Detected (NotDetected) Urine Methadone Screen Not Detected (NotDetected) Ur Propoxyphene Screen Not Detected (NotDetected) Ur Barbiturates Screen Detected H (NotDetected) U Tricyclic Antidepress Detected H (NotDetected) Ur Phencyclidine Scrn Not Detected (NotDetected) Ur Amphetamines Screen Not Detected (NotDetected) U Methamphetamines Scrn Not Detected (NotDetected) U Benzodiazepines Scrn Detected H (NotDetected) Urine Cocaine Screen Not Detected (NotDetected) U Marijuana (THC) Screen Not Detected (NotDetected) Serum Alcohol mg/dL 06/28/17 06/28/17 Range/Units 01:18 01:18 WBC (3.8-10.6) k/uL RBC (3.80-5.40) m/uL Hgb (11.4-16.0) gm/dL Hct (34.0-46.0) % MCV (80.0-100.0) fL MCH (25.0-35.0) pg MCHC (31.0-37.0) g/dL RDW (11.5-15.5) % Plt Count (150-450) k/uL Neutrophils % % Lymphocytes % % Monocytes % % Eosinophils % % Basophils % % Neutrophils # (1.3-7.7) k/uL Lymphocytes # (1.0-4.8) k/uL Monocytes # (0-1.0) k/uL Eosinophils # (0-0.7) k/uL Basophils # (0-0.2) k/uL PT 10.0 (9.0-12.0) sec INR 1.0 (<1.2) APTT 23.7 (22.0-30.0) sec Sodium 142 (137-145) mmol/L Potassium 3.7 (3.5-5.1) mmol/L Chloride 103 (98-107) mmol/L Carbon Dioxide 25 (22-30) mmol/L Anion Gap 14 mmol/L BUN 17 (7-17) mg/dL Creatinine 0.60 (0.52-1.04) mg/dL Est GFR (CKD-EPI)AfAm >90 (>60 ml/min/1.73 sqM) Est GFR (CKD-EPI)NonAf >90 (>60 ml/min/1.73 sqM) Glucose 97 (74-99) mg/dL Calcium 9.4 (8.4-10.2) mg/dL Total Bilirubin 0.3 (0.2-1.3) mg/dL AST 27 (14-36) U/L ALT 30 (9-52) U/L Alkaline Phosphatase 77 (38-126) U/L Total Creatine Kinase (30-135) U/L CK-MB (CK-2) (0.0-2.4) ng/mL CK-MB (CK-2) Rel Index Troponin I (0.000-0.034) ng/mL Total Protein 7.0 (6.3-8.2) g/dL Albumin 3.9 (3.5-5.0) g/dL Urine Color Urine Appearance (Clear) Urine pH (5.0-8.0) Ur Specific [place] (1.001-1.035) Urine Protein (Negative) Urine Glucose (UA) (Negative) Urine Ketones (Negative) Urine Blood (Negative) Urine Nitrite (Negative) Urine Bilirubin (Negative) Urine Urobilinogen (<2.0) mg/dL Ur Leukocyte Esterase (Negative) Urine Opiates Screen (NotDetected) Ur Oxycodone Screen (NotDetected) Urine Methadone Screen (NotDetected) Ur Propoxyphene Screen (NotDetected) Ur Barbiturates Screen (NotDetected) U Tricyclic Antidepress (NotDetected) Ur Phencyclidine Scrn (NotDetected) Ur Amphetamines Screen (NotDetected) U Methamphetamines Scrn (NotDetected) U Benzodiazepines Scrn (NotDetected) Urine Cocaine Screen (NotDetected) U Marijuana (THC) Screen (NotDetected) Serum Alcohol <10 mg/dL - Radiology Data Radiology results: report reviewed (Computed tomography scan the brain shows no acute process), image reviewed (Chest x-ray shows no acute process) Disposition Clinical Impression: Altered mental status, Benzodiazepine overdose Disposition: ADMITTED IP TO THIS [facility] Referrals: Cosme Kaba MD [Primary Care Provider] - 1-2 days Decision Time: 02:33
[2017-06-28 01:14] LABS: Appearance,Urine Clear (Clear); Bilirubin,Urine Negative (Negative); Blood,Urine Negative (Negative); Color,Urine Yellow; Glucose,Urine (UA) Negative (Negative); Ketones,Urine Negative (Negative); Leukocyte Esterase,Urine Negative (Negative); Nitrite,Urine Negative (Negative); PH, Urine 6.5 (5.0-8.0); Protein,Urine Trace (Negative); Specific Gravity,Urine 1.027 (1.001-1.035)
[2017-06-28 01:29] LABS: Basophils % (A) 1 %; Eosinophils # (A) 0.1 k/uL (0-0.7); Eosinophils % (A) 2 %; HCT 41.4 % (34.0-46.0); HGB 13.2 gm/dL (11.4-16.0); Lymphocytes # (A) 1.7 k/uL (1.0-4.8); Lymphocytes % (A) 30 %; MCH 27.7 pg (25.0-35.0); MCV 86.6 fL (80.0-100.0); Monocytes # (A) 0.4 k/uL (0-1.0); Monocytes % (A) 7 %; Neutrophils # (A) 3.2 k/uL (1.3-7.7); Neutrophils % (A) 58 %; Platelet Count 286 k/uL (150-450); RBC 4.78 m/uL (3.80-5.40); WBC 5.6 k/uL (3.8-10.6)
[2017-06-28 01:42] LABS: ALT 30 U/L (9-52); AST 27 U/L (14-36); Albumin 3.9 g/dL (3.5-5.0); Alcohol <10 mg/dL; Alkaline Phosphatase 77 U/L (38-126); Anion Gap 14 mmol/L; Blood Urea Nitrogen 17 mg/dL (7-17); Calcium 9.4 mg/dL (8.4-10.2); Carbon Dioxide 25 mmol/L (22-30); Chloride 103 mmol/L (98-107); Glucose 97 mg/dL (74-99); Potassium 3.7 mmol/L (3.5-5.1); Sodium 142 mmol/L (137-145); Total Bilirubin 0.3 mg/dL (0.2-1.3)
[2017-06-28 01:43] LABS: Amphetamine Screen,Urine Not Detected (NotDetected); Barbiturate Screen,Urine Detected (NotDetected); Benzodiazepines Screen,Urine Detected (NotDetected); Cocaine Screen,Urine Not Detected (NotDetected); Methadone Screen, Urine Not Detected (NotDetected); Opiate Screen,Urine Not Detected (NotDetected); Oxycodone Screen, Urine Not Detected (NotDetected); Phencyclidine Screen,Urine Not Detected (NotDetected); Tricyclic Antidepressant,Urine Detected (NotDetected); Urn Cannabinoid Scrn Not Detected (NotDetected)
[2017-06-28 01:43] LABS: Partial Thromboplastin Time 23.7 sec (22.0-30.0)
[2017-06-28 01:51] LABS: Creatine Kinase 74 U/L (30-135)
--- NOTE | 2017-06-28 01:57 | XR ---
EXAMINATION TYPE: XR chest 2V DATE OF EXAM: 06/28/2017 COMPARISON: 05/16/2015 HISTORY: Altered mental status TECHNIQUE: Frontal and lateral views of the chest are obtained. FINDINGS: Heart and mediastinum are normal. Lungs are clear of consolidation. Costophrenic angles ar e clear. Bony thorax is intact. Pulmonary vascularity is normal. There is a small linear density at the left lung base. IMPRESSION: Subsegmental minimal atelectasis at the left lung base without change compared to old ex am. Normal heart.
--- NOTE | 2017-06-28 01:58 | CT ---
EXAMINATION TYPE: CT brain wo con DATE OF EXAM: 06/28/2017 COMPARISON: 06/18/2017 HISTORY: AMS CT DLP: 1012.70 mGycm Automated exposure control for dose reduction was used. FINDINGS: There is mild frontal lobe cortical atrophy. There is no mass effect nor midline shift. There is no s ign of intracranial hemorrhage. Calvarium is intact. IMPRESSION: NEGATIVE CT SCAN OF THE BRAIN. MILD ATROPHY. NO CHANGE.
[2017-06-28 02:04] LABS: Creatine Kinase MB 1.3 ng/mL (0.0-2.4); Troponin I <0.012 ng/mL (0.000-0.034)
[2017-06-28] MEDS ORDERED: NALOXONE 0.4 MG/ML 1 ML VIAL IV PRN (02:33)
[2017-06-28] MEDS: SODIUM CHLORIDE 0.9% 1,000 ML IV SCH (03:08)
[2017-06-28] MEDS ORDERED: PANTOPRAZOLE 40 MG/10 ML VIAL IVP SCH (09:15)
[2017-06-28] MEDS: ACETAMINOPHEN TAB 325 MG TAB PO PRN ×2 (10:12→17:23)
[2017-06-28] MEDS: ATENOLOL 50 MG TAB PO SCH ×2 (10:14→20:36)
[2017-06-28] MEDS: DIVALPROEX 500 MG TABLET.DR PO SCH ×2 (10:14→20:37)
[2017-06-28] MEDS ORDERED: INFLUENZA VACCINE (6 MOS+) 60 MCG/0.5 ML SYRINGE IM ONE (10:20)
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
--- NOTE | 2017-06-28 15:50 | P.HPIM ---
History of Present Illness 56-year-old female presenting to the emergency department for confusion. Discussed with her patient thinks she had a seizure although her brought her here because she is quite a bit confused and the he believes she took quite a bit of Xanax. Patient is on multiple set certain serotonin reuptake inhibitors patient had last seizure about 2 weeks ago. Neck neurology and psychiatry were consulted patient apparently was given a prescription for phenobarbital which was not recommended by neurology in the past. Phenobarbital will be discontinued Xanax will be resumed with concerns of withdrawal seizures rest of the medications will be discussed in your patient is still bit confused but almost close to her baseline now. Patient does not have any signs or symptoms of infection or dehydration Review of Systems REVIEW OF SYSTEMS: CONSTITUTIONAL: No fever, no malaise, no fatigue. HEENT: No recent visual problems or hearing problems. Denied any sore throat. CARDIOVASCULAR: No chest pain, orthopnea, PND, no palpitations, no syncope. PULMONARY: No shortness of breath, no cough, no hemoptysis. GASTROINTESTINAL: No diarrhea, no nausea, no vomiting, no abdominal pain. Normoactive bowel sounds. NEUROLOGICAL: No headaches, no weakness, no numbness. HEMATOLOGICAL: Denies any bleeding or petechiae. GENITOURINARY: Denies any burning micturition, frequency, or urgency. MUSCULOSKELETAL/RHEUMATOLOGICAL: Denies any joint pain, swelling, or any muscle pain. ENDOCRINE: Denies any polyuria or polydipsia. The rest of the 14-point review of systems is negative. Past Medical History Past Medical History: Fibromyalgia, Hypertension, Osteoarthritis (OA), Seizure Disorder, Syncope Additional Past Medical History / Comment(s): Recent admission to [facility] on with seizure/syncope, blunt head injury secondary to a fall, had hypotensive episode, UDS + barbituates, tricyclic antidepressants, amphetamines and methamphetamines and benzos. Other hx: Chronic low back pain, DDD, frequent migraines, UTIs, History of Any Multi-Drug Resistant Organisms: None Reported Past Surgical History: Section, Hysterectomy, Joint Replacement Additional Past Surgical History / Comment(s): 2014 cardiac cath-normal, L breast lumpectomy/cyst (BENIGN) removed, colonoscopy, rt foot sx BENIGN TUMOR REMOVED., luke knee replacements Past Anesthesia/Blood Transfusion Reactions: No Reported Reaction Additional Past Anesthesia/Blood Transfusion Reaction / Comment(s): CLAUSTERPHOBIA Smoking Status: Never smoker - Past Family History Father Additional Family Medical History / Comment(s): ALL PT KNOWS ABOUT HER DAD WAS HE WAS AN ALCOHOLIC/SMOKER FROM EMPHYSEMA Mother Family Medical History: Cancer Additional Family Medical History / Comment(s): CANCER IN HER CERVICAL SPINE, MIGRAINES Medications and Allergies Home Medications Medication Instructions Recorded Confirmed Type ALPRAZolam [Xanax] 1 mg PO TID 05/07/17 06/28/17 History Atomoxetine HCl 80 mg PO DAILY 05/07/17 06/28/17 History Buprenorphine HCl/Naloxone HCl 1 film SL TID 05/07/17 06/28/17 History [Suboxone 8 mg-2 mg Sl Film] Phentermine HCl [Adipex-P] 37.5 mg PO QAM 05/07/17 06/28/17 History Promethazine 6.25MG/5Ml [Phenergan 5 mg PO TID PRN 06/12/17 06/28/17 History Syrup] Divalproex [Depakote] 500 mg PO BID #60 tablet.dr 06/14/17 06/28/17 Rx FLUoxetine HCL [PROzac] 40 mg PO DAILY #30 cap 06/14/17 06/28/17 Rx ARIPiprazole [Abilify] 5 mg PO DAILY 06/28/17 06/28/17 History Atenolol [Tenormin] 50 mg PO BID 06/28/17 06/28/17 History Doxepin HCl [SINEquan] 200 mg PO HS 06/28/17 06/28/17 History Allergies Allergy/AdvReac Type Severity Reaction Status Date / Time No Known Allergies Allergy Verified 06/28/17 08:36 Physical Exam Vitals: Vital Signs Temp Pulse Pulse Resp BP BP Pulse Ox 06/28/17 15:00 97.1 F L 63 16 117/76 93 L 06/28/17 07:00 98.7 F 78 16 118/75 94 L 06/28/17 03:08 79 16 123/63 99 06/28/17 03:00 97.9 F 80 18 130/69 99 06/27/17 22:47 97.4 F L 98 16 96/72 95 Intake and Output 06/28/17 06/28/17 06/28/17 06:59 14:59 22:59 Intake Total 150 Output Total 60 Balance -60 150 Intake: Oral 150 Output: Urine 60 Other: Voiding Method Toilet # Voids 2 3 PHYSICAL EXAMINATION: GENERAL: The patient is alert and oriented x2 confused, not in any acute distress. Well developed, well nourished. HEENT: Pupils are round and equally reacting to light. EOMI. No scleral icterus. No conjunctival pallor. Normocephalic, atraumatic. No pharyngeal erythema. No thyromegaly. CARDIOVASCULAR: S1 and S2 present. No murmurs, rubs, or gallops. PULMONARY: Chest is clear to auscultation, no wheezing or crackles. ABDOMEN: Soft, nontender, nondistended, normoactive bowel sounds. No palpable organomegaly. MUSCULOSKELETAL: No joint swelling or deformity. EXTREMITIES: No cyanosis, clubbing, or pedal edema. NEUROLOGICAL: Gross neurological examination did not reveal any focal deficits. SKIN: No rashes. Results CBC & Chem 7: 06/28/17 01:18 06/28/17 01:18 Labs: Abnormal Lab Results - Last 24 Hours (Table) 06/28/17 Range/Units 01:00 Urine Protein Trace H (Negative) Ur Barbiturates Screen Detected H (NotDetected) U Tricyclic Antidepress Detected H (NotDetected) U Benzodiazepines Scrn Detected H (NotDetected) Thrombosis Risk Factor Assmnt - Choose All That Apply Any of the Below Risk Factors Present?: Yes Each Factor Represents 1 point: Age 41-60 years, Obesity (BMI >25) Other Risk Factors: No Other congenital or acquired thrombophilia - If yes, enter type in comment: No Thrombosis Risk Factor Assessment Total Risk Factor Score: 2 Thrombosis Risk Factor Assessment Level: Low Risk Assessment and Plan Plan: Mental status and toxic encephalopathy from overdose on Xanax further management as mentioned above all the Xanax will be resumed once he is more awake with concerns of withdrawal seizures because of her being on multiple serotonin reuptake inhibitors and the being on high-dose of Xanax at home. Discussed with the psychiatry in detail. -History of seizure disorder for which patient is on antiseizure medications at this time. Fibromyalgia.
[2017-06-28] MEDS ORDERED: ALPRAZolam 1 MG TAB PO SCH (16:00)
[2017-06-28] MEDS: ALPRAZolam 0.5 MG TAB PO SCH ×2 (16:16→21:08)
[2017-06-29] MEDS: SODIUM CHLORIDE 0.9% 1,000 ML IV SCH (04:34)
[2017-06-29] MEDS ORDERED: PANTOPRAZOLE 40 MG TABLET PO SCH (07:30)
[2017-06-29] MEDS: ALPRAZolam 0.5 MG TAB PO SCH ×2 (07:41→15:17)
[2017-06-29] MEDS: DIVALPROEX 500 MG TABLET.DR PO SCH (07:41)
[2017-06-29] MEDS: ATENOLOL 50 MG TAB PO SCH (07:41)
[2017-06-29] MEDS: ACETAMINOPHEN TAB 325 MG TAB PO PRN ×2 (07:43→15:19)
--- NOTE | 2017-06-29 09:59 | CONS ---
CONSULTATION DATE OF CONSULTATION: 06/28/2017. CHIEF COMPLAINT: Altered mental status. HISTORY OF PRESENT ILLNESS: The patient is a pleasant 56-year-old, female who is being evaluated by the neurology service today on 06/28/17 per the request of Dr. Sevilla for altered mental status. The patient was brought into [facility] Emergency Room after her noticed that she was quite drowsy and confused. According to the chart, the patient's thinks that she took her Xanax more than prescribed. A CT scan of the brain was done, which showed no acute findings. Generalized atrophy was seen. Her CBC, cardiac enzymes, urinalysis, INR, and comprehensive metabolic profile were normal. Her urine drug screen was positive for barbiturates, benzodiazepine, and tricyclic antidepressants. The patient was admitted for further workup and management. At the time of my evaluation, the patient is more awake. She informs me that she thinks she had a seizure at home. She denies any previous history of seizures. She states that she started jerking all over, but denies any loss of consciousness or altered consciousness. At the time of my evaluation, she denies any neurological complaints. She appears to be adamant about not stopping her Xanax, stating that she has been on it for several years and cannot stop the medication. PAST MEDICAL HISTORY: Fibromyalgia, hypertension, arthritis, migraines, chronic low back pain, degenerative disc disease, history of , hysterectomy, joint replacement surgery, left breast lumpectomy, knee replacement surgeries. SOCIAL HISTORY: She denies any tobacco, alcohol or drug use. FAMILY HISTORY: Positive for cancer. HOME MEDICATIONS: Reviewed in the chart. ALLERGIES: No known drug allergies. REVIEW OF SYSTEM: As mentioned above and otherwise negative. PHYSICAL EXAM: Vital signs show a temperature of 97.4, pulse 65, respiration 12, blood pressure 132/77. GENERAL APPEARANCE: The patient is a well-developed female, who appears to be in no acute distress. HEENT: Normocephalic, atraumatic, no facial asymmetry is seen. NECK: Supple with no masses felt. CARDIOVASCULAR: Regular rate and rhythm. ABDOMEN: Nontender, nondistended. Extremities showed no edema or clubbing. NEUROLOGICAL EXAM: The patient is alert, aware and oriented x3. Speech and language are normal. Strength is full in all 4 extremities. Sensory exam was normal to light touch in all 4 extremities. No tremors or seizure-like activity is seen. No facial asymmetry is noticed on cranial nerve testing. IMPRESSION: 1. Altered mental status. 2. Acute toxic encephalopathy. 3. Psychiatric disorder. 4. Possible benzodiazepine overdose. RECOMMENDATION: According to the history, the patient appears to have been over using her benzodiazepine. Her mental status has improved since her admission. The patient denies overusing her medications, but is adamant about not discontinuing her benzodiazepine. In reviewing her home medications, other than her Xanax, she is on Depakote doxepin, and Abilify. I will consult Psychiatry. Her above-mentioned seizure- like episode is not consistent with seizure as she did not have any altered consciousness or loss of consciousness. Although she was describing, a generalized seizure-like activity. An EEG will be ordered. Continue neuro checks. I will continue to follow with you. Further recommendations to follow. Thank you for allowing me to participate in the care of your patient. If you have any questions, please feel free to contact me. SONIA / MAKAYLA: [phone] /
--- NOTE | 2017-06-29 13:00 | P.PN ---
Progress Note - Text Progress Note Date: 06/29/17 Interval History: Patient is a 56-year-old female is being seen in follow-up to a consultation performed yesterday. Patient reports that she didn't fax start phenobarbital on the after was prescribed by her primary care physician but she cannot tell me why it was prescribed. Patient states that she is feeling better today, reported no confusion. She states that she is not having any suicidal ideation at this time. Mental Status: Appearance/Attitude: Patient is lying in her hospital bed, aches good eye contact and is cooperative. Behavior: Patient does not exhibit any psychomotor agitation or retardation. Speech/Language: Patient's speech is spontaneous, soft voice of normal rhythm and she is coherent Thought Process: Patient is goal-directed there is no evidence of loose associations or flight of ideas Thought Content: Patient denies any auditory or visual hallucinations no delusions or paranoid ideation or elicited. Patient reports that she was not feeling depressed at home but it had a bad day and that's why she took one extra Xanax. When I asked the patient why she had been placed on phenobarbital which she did apparently take after filling a prescription on June 27 because her UDS is positive for barbiturates she said she does not know why she was prescribed that. Suicidal/Homicidal Ideation: She denies any current suicidal or homicidal ideation. Sensorium/Cognition: She is alert and oriented to person, place, and time and her recent and remote memory are grossly intact. Mood/Affect: Patient's mood is pleasant and her affect is appropriate Insight/Judgment: Patient's insight and judgment are adequate Assessment: Patient has been taking at home Sinequan 200 mg, Xanax 1 mg 3 times a day as well as being prescribed Depakote for her new diagnosis of seizure disorders in May and being on Suboxone. Patient took 2 Xanax due to having a bad day as well as starting a new prescription of phenobarbital 16.2 mg in combination with her other medications. Patient states that she is not feeling suicidal and this was not a suicide attempt. She states that she has followed up with Dr. Mcpherson her outpatient psychiatrist. She reports no increase in her symptoms of OCD, anxiety or depression. Plan: I again discussed and reviewed with the patient that she should continue on those psychotropic medications prescribed by and again recommended that she discontinue her use of Sinequan 200 mg as needed at night. I recommended to her that she should continue her Xanax 1 mg 3 times a day as needed the patient picked up a prescription of #90 on June 27. As well the patient should continue on her Abilify 5 mg daily and Prozac 40 mg daily. I encouraged the patient to not continue using Strattera, Adipex or the Sinequan. It is unclear why the patient was begun on phenobarbital but I would recommend that this be discontinued as well. Patient was encouraged to make a follow-up appointment with Dr. Mcpherson and take her medications as ordered, not taking extra doses of Xanax. Patient states she has sufficient Abilify and Prozac at home as well. Per a [facility] review the patient has not picked up a prescription of Adipex since May 17.
[2017-06-29 16:33] VITALS: BP 111/80; PULSE 63; RESP 20; TEMP 97.1
--- NOTE | 2017-06-29 17:09 | P.DS ---
Providers Date of admission: 06/28/17 02:36 Expected date of discharge: 06/29/17 Attending physician: Adrianna Figueroa Consults: 06/28/17 02:35 Consult Physician Urgent Consulting Provider: Traci Andrew Consult Reason/Comments: ams Do you want consulting provider notified?: Yes 06/28/17 09:13 Consult Physician Routine Consulting Provider: Yasmin Spring Consult Reason/Comments: overdose of benzodiazepine Do you want consulting provider notified?: Yes Primary care physician: Cosme Kaba [facility] Course: Final Diagnoses: Mental status and toxic encephalopathy from overdose on Xanax further management as mentioned above.Xanax resumed- concerns of withdrawal seizures because of her being on multiple serotonin reuptake inhibitors and the being on high-dose of Xanax at home. Discussed with the psychiatry in detail. -History of seizure disorder for which patient is on antiseizure medications at this time. Fibromyalgia. Hospital course:56-year-old female presenting to the emergency department for confusion. Discussed with her patient thinks she had a seizure although her brought her here because she is quite a bit confused and the he believes she took quite a bit of Xanax. Patient is on multiple set certain serotonin reuptake inhibitors patient had last seizure about 2 weeks ago. Neck neurology and psychiatry were consulted patient apparently was given a prescription for phenobarbital which was not recommended by neurology in the past. Phenobarbital will be discontinued Xanax will be resumed with concerns of withdrawal seizures rest of the medications will be discussed in your patient is still bit confused but almost close to her baseline now. Patient does not have any signs or symptoms of infection or dehydration. Evaluated by psychiatry with medications adjusted. Evaluated by neurology, EEG pending. Cleared by psychiatry for discharge. Patient will be discharged home in a stable condition with guarded prognosis after EEG completed and cleared by neurology. No driving/seizure precautions. Physical Exam:VSS, alert and oriented 2, no acute distress,CV: Regular S1 and S2,LUNGS: Clear to auscultation. ABD: Soft nontender positive bowel sounds.NEURO : No focal deficits. The impression and plan of care has been dictated as directed. : I performed a history and examination of this patient, discussed the same with the dictator. I agree with the dictator's note ,documented as a scribe. Any additional findings or plans will be noted. Time taken: 35 minutes Patient Condition at Discharge: Stable Plan - Discharge Summary Discharge Rx Participant: No New Discharge Prescriptions: New Pantoprazole [Protonix] 40 mg PO AC-BRKFST #30 tablet. Continue Divalproex [Depakote] 500 mg PO BID #60 tablet. FLUoxetine HCL [PROzac] 40 mg PO DAILY #30 cap ARIPiprazole [Abilify] 5 mg PO DAILY Atenolol [Tenormin] 50 mg PO BID Changed ALPRAZolam [Xanax] 0.5 mg PO TID #0 Discontinued Phentermine HCl [Adipex-P] 37.5 mg PO QAM Atomoxetine HCl 80 mg PO DAILY Promethazine 6.25MG/5Ml [Phenergan Syrup] 5 mg PO TID PRN PRN Reason: Cough Doxepin HCl [SINEquan] 200 mg PO HS Discharge Medication List Divalproex [Depakote] 500 mg PO BID #60 tablet. 06/14/17 [Rx] FLUoxetine HCL [PROzac] 40 mg PO DAILY #30 cap 06/14/17 [Rx] ARIPiprazole [Abilify] 5 mg PO DAILY 06/28/17 [History] Atenolol [Tenormin] 50 mg PO BID 06/28/17 [History] ALPRAZolam [Xanax] 0.5 mg PO TID #0 06/29/17 [Rx] Pantoprazole [Protonix] 40 mg PO AC-BRKFST #30 tablet. 06/29/17 [Rx] Follow up Appointment(s)/Referral(s): Traci Andrew MD [STAFF PHYSICIAN] - 07/13/17 (Office will call you with appointment time. ) Cosme Kaba MD [Primary Care Provider] - 3 Days (Office closed, please call to schedule.) Jabier Rico DO [Doctor of Osteopathic Medicine] - 07/06/17 (Office closed, please call to schedule appointment. ) Patient Instructions/Handouts: Benzodiazepine Overdose (DC) Activity/Diet/Wound Care/Special Instructions: pending EEG and neurology clearance. Cardiac diet. Activity as tolerated. Take medications as prescribed.
--- NOTE | 2017-06-29 20:23 | EEG ---
ELECTROENCEPHALOGRAM REPORT DATE OF SERVICE: 06/29/2017 REASON FOR TESTING: Altered mental status. DESCRIPTION OF THE PROCEDURE: This EEG was performed using a 21-channel digital electroencephalograph, following international 10-20 system. DESCRIPTION OF THE RECORDING: From the beginning of the tracing, and with the patient's eyes closed, the background rhythm was mostly consisting of 8-9 Hz alpha frequency in the posterior occipital leads. No obvious asymmetry is seen. Occasional movement artifacts are seen. Photic stimulation was performed with no driving response seen. No pathological waves were elicited. The patient does reach stage II of sleep during the tracing and occasional sleep spindles are seen. Hyperventilation was not performed. No epileptiform discharges were seen. Her EKG lead showed a bradycardic rate with a normal rhythm. INTERPRETATION: This asleep and awake EEG can be considered within normal limits. There was no asymmetry seen. No epileptiform discharges were noticed. The absence of epileptiform discharges does not rule out the diagnosis of epilepsy; therefore clinical correlation is recommended. Of note, her EKG lead showed a bradycardic rate with a normal rhythm. MMODL / IJN: [id number] /
== END 2017-06-29 18:54 | disposition home or self-care (01) ==
LOC: EC 22:40 → 3SUR 06-28 02:36 → 4MS4W 06-28 11:05
PROVIDERS: ADMIT Hospitalist; ATTEND Hospitalist
DX: T42.4X1A Poisoning by benzodiazepines, accidental (unintentional), initial encounter (principal); G92 Toxic encephalopathy; M79.7 Fibromyalgia; I10 Essential (primary) hypertension; G40.909 Epilepsy, unspecified, not intractable, without status epilepticus; F32.9 Major depressive disorder, single episode, unspecified; F41.9 Anxiety disorder, unspecified; F40.01 Agoraphobia with panic disorder; F42.8 Other obsessive-compulsive disorder; M19.90 Unspecified osteoarthritis, unspecified site; M54.5 Low back pain; G89.29 Other chronic pain; E66.9 Obesity, unspecified; Z68.36 Body mass index [BMI] 36.0-36.9, adult; Z79.899 Other long term (current) drug therapy; G43.909 Migraine, unspecified, not intractable, without status migrainosus; Z87.440 Personal history of urinary (tract) infections; Z96.653 Presence of artificial knee joint, bilateral; Z82.5 Family history of asthma and other chronic lower respiratory diseases; Z81.1 Family history of alcohol abuse and dependence; Z81.2 Family history of tobacco abuse and dependence; Z80.8 Family history of malignant neoplasm of other organs or systems; Z82.0 Family history of epilepsy and other diseases of the nervous system; Z23 Encounter for immunization
CPT/HCPCS: 99285 ×2; 96361 ×2; 96374; 36415; 95819; 93005; 80053; 82550; 82553; 84484; 85025; 85610; 85730; 81003; 80306; 80320; 71046; 70450; 90686; G0378 ×2; G0008; C9113